=== PATIENT | female | born 1985 | race Caucasian/White ===

== ENCOUNTER → 2019-10-29 16:10 | Outpatient (BNVA) | payer MEDICARE, MEDICAID, SELFPAY | PROVIDERS: Family Provider Nurse Practitioner Family; PCP Nurse Practitioner Family; Referring Provider Nurse Practitioner Family; Visit Provider Obstetrics & Gynecology | DX: N93.9 Abnormal uterine and vaginal bleeding, unspecified (principal) | CPT/HCPCS: 84146; 84443 ==

== ENCOUNTER → 2019-11-05 13:20 | Outpatient (BNVA) | payer MEDICARE, MEDICAID, SELFPAY | PROVIDERS: Family Provider Nurse Practitioner Family; PCP Nurse Practitioner Family; Visit Provider Nurse Practitioner | DX: F43.12 Post-traumatic stress disorder, chronic (principal); F31.60 Bipolar disorder, current episode mixed, unspecified | CPT/HCPCS: 80061; 83036; 99213 ==

== ENCOUNTER 2019-11-11 08:12 | Outpatient (CLI) | payer MEDICARE, MEDICAID, SELFPAY ==
--- NOTE | 2019-11-11 08:48 | MR_ITS ---
WS: [id number] MRI of the head and brain with and without IV contrast, 11/11/2019 Clinical Data: hyperprolactinemia Comparison: None. Findings: Additional imaging of the pituitary with thin cuts and axial, sagittal and coronal projections was ob tained. Ventricular system is normal without shift. No recent infarct or hemorrhage is seen. No abnormal intracerebral mass is present. The cerebellum and brainstem are unremarkable. The carotid arteries show no aneurysms. The regions of nerves VII and VIII and the mastoid air cells are unremarkable. The intraorbital contents and paranasal sinuses are normal. The pituitary is normal in size with no evidence of any enlargement or abnormal signal. No evidence of metastatic disease is seen, and there is no abnormal contrast enhancement of any struc ture. MR/MR pituitary wo/w con* [id number] Impression: Negative MRI of the head and brain. Negative MRI of the pituitary.
== END 2019-11-11 08:13 | disposition home or self-care (01) ==
LOC: RADWPI 08:15
PROVIDERS: Family Provider Nurse Practitioner Family; PCP Nurse Practitioner Family; Visit Provider Obstetrics & Gynecology
DX: E22.1 Hyperprolactinemia (principal)
CPT/HCPCS: 70553; A9579

== ENCOUNTER → 2019-12-03 07:29 | Outpatient (BNVA) | payer MEDICARE, MEDICAID, SELFPAY | PROVIDERS: Family Provider Nurse Practitioner Family; PCP Nurse Practitioner Family; Visit Provider Obstetrics & Gynecology | DX: N93.9 Abnormal uterine and vaginal bleeding, unspecified (principal) | CPT/HCPCS: 88305 ==

== ENCOUNTER → 2019-12-31 12:55 | Outpatient (BNVA) | payer MEDICARE, MEDICAID, SELFPAY | PROVIDERS: Family Provider Nurse Practitioner Family; PCP Nurse Practitioner Family; Visit Provider Obstetrics & Gynecology | DX: R79.89 Other specified abnormal findings of blood chemistry (principal) | CPT/HCPCS: 84146 ==

== ENCOUNTER → 2020-01-27 07:43 | Outpatient (BNVA) | payer MEDICARE, MEDICAID, SELFPAY | PROVIDERS: Family Provider Nurse Practitioner Family; PCP Nurse Practitioner Family; Visit Provider Nurse Practitioner | DX: F43.12 Post-traumatic stress disorder, chronic (principal); F31.60 Bipolar disorder, current episode mixed, unspecified | CPT/HCPCS: 99213 ==

== ENCOUNTER → 2020-04-12 13:07 | Outpatient (BNVA) | payer MEDICARE, MEDICAID, SELFPAY | PROVIDERS: Family Provider Nurse Practitioner Family; PCP Nurse Practitioner Family; Visit Provider Obstetrics & Gynecology | DX: N93.9 Abnormal uterine and vaginal bleeding, unspecified (principal) | CPT/HCPCS: 84146 ==

== ENCOUNTER → 2020-04-21 09:15 | Outpatient (BNVA) | payer MEDICARE, MEDICAID, SELFPAY | PROVIDERS: Family Provider Nurse Practitioner Family; PCP Nurse Practitioner Family; Visit Provider Nurse Practitioner | DX: F43.12 Post-traumatic stress disorder, chronic (principal); F31.60 Bipolar disorder, current episode mixed, unspecified | CPT/HCPCS: 99213 ==

== ENCOUNTER → 2020-05-17 13:10 | Outpatient (BNVA) | payer MEDICARE, MEDICAID, SELFPAY | PROVIDERS: Family Provider Nurse Practitioner Family; PCP Nurse Practitioner Family; Visit Provider Obstetrics & Gynecology | DX: E22.1 Hyperprolactinemia (principal); N93.9 Abnormal uterine and vaginal bleeding, unspecified | CPT/HCPCS: 84146 ==

== ENCOUNTER → 2020-05-19 08:19 | Outpatient (BNVA) | payer MEDICARE, MEDICAID, SELFPAY | PROVIDERS: Family Provider Nurse Practitioner Family; PCP Nurse Practitioner Family; Visit Provider Nurse Practitioner | DX: F31.60 Bipolar disorder, current episode mixed, unspecified (principal); F43.12 Post-traumatic stress disorder, chronic | CPT/HCPCS: 99213 ==

== ENCOUNTER → 2020-05-23 11:16 | Outpatient (BNVA) | payer MEDICARE, MEDICAID, SELFPAY | PROVIDERS: Family Provider Nurse Practitioner Family; PCP Nurse Practitioner Family; Visit Provider Registered Nurse | DX: Z92.29 Personal history of other drug therapy (principal) | CPT/HCPCS: 80053; 85025 ==

== ENCOUNTER → 2020-08-22 08:05 | Outpatient (BNVA) | payer MEDICARE, MEDICAID, SELFPAY | PROVIDERS: Family Provider Nurse Practitioner Family; PCP Nurse Practitioner Family; Visit Provider Nurse Practitioner | DX: F31.60 Bipolar disorder, current episode mixed, unspecified (principal); F43.12 Post-traumatic stress disorder, chronic | CPT/HCPCS: 99213 ==

== ENCOUNTER → 2020-09-19 08:10 | Outpatient (BNVA) | payer MEDICARE, MEDICAID, SELFPAY | PROVIDERS: Family Provider Nurse Practitioner Family; PCP Nurse Practitioner Family; Visit Provider Nurse Practitioner | DX: F31.60 Bipolar disorder, current episode mixed, unspecified (principal); F43.12 Post-traumatic stress disorder, chronic | CPT/HCPCS: 99214 ==

== ENCOUNTER → 2020-12-12 13:44 | Outpatient (BNVA) | payer MEDICARE, MEDICAID, SELFPAY | PROVIDERS: Family Provider Nurse Practitioner Family; PCP Nurse Practitioner Family; Visit Provider Nurse Practitioner | DX: F31.60 Bipolar disorder, current episode mixed, unspecified (principal); F43.12 Post-traumatic stress disorder, chronic | CPT/HCPCS: 99214 ==

== ENCOUNTER → 2021-02-02 07:28 | Outpatient (BNVA) | payer MEDICARE, MEDICAID, SELFPAY | PROVIDERS: Family Provider Nurse Practitioner Family; PCP Nurse Practitioner Family; Visit Provider Nurse Practitioner | DX: F31.60 Bipolar disorder, current episode mixed, unspecified (principal); F43.12 Post-traumatic stress disorder, chronic | CPT/HCPCS: 99214 ==

== ENCOUNTER → 2021-03-16 07:07 | Outpatient (BNVA) | payer MEDICARE, MEDICAID, SELFPAY | PROVIDERS: Family Provider Nurse Practitioner Family; PCP Nurse Practitioner Family; Visit Provider Nurse Practitioner | DX: F31.60 Bipolar disorder, current episode mixed, unspecified (principal); F43.12 Post-traumatic stress disorder, chronic | CPT/HCPCS: 99214 ==

== ENCOUNTER → 2021-06-06 07:55 | Outpatient (BNVA) | payer MEDICARE, MEDICAID, SELFPAY | PROVIDERS: Family Provider Nurse Practitioner Family; PCP Nurse Practitioner Family; Visit Provider Nurse Practitioner | DX: F31.60 Bipolar disorder, current episode mixed, unspecified (principal); F43.12 Post-traumatic stress disorder, chronic | CPT/HCPCS: 99214 ==

== ENCOUNTER → 2021-06-19 09:22 | Outpatient (BNVA) | payer MEDICARE, MEDICAID, SELFPAY | PROVIDERS: Family Provider Nurse Practitioner Family; PCP Nurse Practitioner Family; Referring Provider Registered Nurse; Visit Provider Orthopaedic Surgery | DX: Z87.81 Personal history of (healed) traumatic fracture (principal) | CPT/HCPCS: 73000 ==

== ENCOUNTER → 2021-07-13 12:11 | Outpatient (BNVA) | payer MEDICARE, MEDICAID, SELFPAY | PROVIDERS: Family Provider Nurse Practitioner Family; PCP Nurse Practitioner Family; Visit Provider Nurse Practitioner | DX: Z01.812 Encounter for preprocedural laboratory examination (principal); Z20.822 Contact with and (suspected) exposure to COVID-19 | CPT/HCPCS: 87635 ==

== ENCOUNTER → 2021-07-17 09:30 | Outpatient (BNVA) | payer MEDICARE, MEDICAID, SELFPAY | PROVIDERS: Family Provider Nurse Practitioner Family; PCP Nurse Practitioner Family; Visit Provider Nurse Practitioner | DX: F31.60 Bipolar disorder, current episode mixed, unspecified (principal); F43.12 Post-traumatic stress disorder, chronic | CPT/HCPCS: 99214 ==

== ENCOUNTER 2021-07-19 09:22 | Day surgery (SDC) | payer MEDICARE, MEDICAID, SELFPAY ==
[2021-07-18 12:02] VITALS: BMI 19.8
[2021-07-19] VITALS (13 sets, daily range): BP systolic 95–141; BP diastolic 31–94; PULSE 56–114; RESP 13–32; TEMP 36.2–36.8; O2SAT 96–100
--- NOTE | 2021-07-19 | XR_ITS ---
WS: [id number] Right clavicle, C-arm fluoroscopy, 07/19/2021 Clinical Data: Revision, or pic Comparison: None. Findings: Dr. Oliveira revised the plate and screw fixation of a mid shaft fracture of the right clavicle. XR/[place] [id number] Impression: Revision of internal fixation of right clavicular fracture.
--- NOTE | 2021-07-19 | SCC_ITS ---
Procedure Done: Open reduction internal fixation right clavicle with iliac crest bone graft. Removal hardware right clavicle 8 seconds of fluoroscopic guidance, for a cumulative dose of 0.52 mGy, was provided to Dr. Oliveira by the radiology department. C-arm images of the RIGHT clavicle were saved for the patient's permanent record. [facility]
[2021-07-19] MEDS: sodium chloride 0.9% 1,000 ML 30 ML IV (09:55)
[2021-07-19 10:03] LABS: OR HCG Qualitative Urine Negative (Negative)
--- NOTE | 2021-07-19 10:44 | P.ANESASSM_ITS ---
Pre-Anesthetic Assessment Pre-Anesthetic Assessment: Height/Weight: Height 1.55 m Weight 47.627 kg Temp Pulse Resp BP Pulse Ox 98.2 F 56 L 16 119/69 97 07/19/21 09:36 07/19/21 09:36 07/19/21 09:36 07/19/21 09:36 07/19/21 09:36 Proposed Procedure: Operation Date: 07/19/21 11:05 Proposed Procedures p ORIF Clavicle 92124 Z87.81(Right) - Celio Oliveira MD Was Beta Yandel taken within 24 hours: N/A Was Clonidine taken within 24 hours: N/A Last intake: Intake Last Liquid Date 07/18/21 Last Liquid Time 11:45 Last Solid Date 07/18/21 Last Solid Time 23:00 Social: Social History: Tobacco and No alcohol Exam: Pre-Anes Outpt Exam: alert, oriented x 3 and regular rate & rhythm Airway: Submandibular: WNL Cervical ROM: WNL MP: 2 Dentition: False (uppers) Pulmonary: Pulmonary: COPD Neuropsych: Neuropsych: Anxiety, Bipolar and Depression Anesthetic Plan: ASA status: 2 Anesthesia: General Risk of > 500 ml blood loss (7ml/kg in children): No Meds/Allergies Current Medications: Current Medications Generic Name Dose Route Start Last Admin Trade Name Freq PRN Reason Stop Dose Admin Sodium Chloride 1,000 mls @ 30 ml s/hr 07/19/21 09:30 07/19/21 09:55 Sodium Chloride 0.9% IV 07/20/21 09:29 30 mls/hr .Q24H SUZI Administration PFSH Anesthesia PFSH: Medical History ADHD (attention deficit hyperactivity disorder) Bipolar disorder, current episode mixed, unspecified Post-traumatic stress disorder, chronic Psychiatric care Surgical History History of bilateral tubal ligation (~2011) History of broken collarbone (01/29/18) 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 [place] [facility] [place]. Family History Grandmother Uterine cancer maternal Mother Thyroid disease Unknown No pertinent family history hypertension, high cholesterol, diabetes, heart disease, stroke, colon cancer, breast cancer or ovarian cancer Social History Smoking risk assessment/counseling performed?: Yes Tobacco counseling given: counseling >3 minutes Alcohol intake: never Female Reproductive History: Date of last menstrual period: 06/20/21 Data Anesthesia Other Labs: Laboratory Results - last 48 hr 07/19/21 09:57 Urine HCG, Qual Negative Cardiac Studies: No Data to Display
--- NOTE | 2021-07-19 12:10 | W.PM.OPSUD ---
Surgery/Procedure H&P Update DATE OF PROCEDURE: July 19, 2021 DATE H&P PERFORMED: 06/19/21 H&P UPDATE INFORMATION: No changes to prior documentation PREOP DIAGNOSIS: Fracture nonunion right clavicle PLANNED PROCEDURE: Operation Date: 07/19/21 11:05 Proposed Procedures p ORIF Clavicle 64469 Z87.81(Right) - Celio Oliveira MD
--- NOTE | 2021-07-19 15:08 | P.PCN_ITS ---
PACU note PACU note: VSS, Good respiratory effort, report to RESISTOR TESTER Post-Anesthesia Exam: awake
--- NOTE | 2021-07-19 15:08 | PM.PACU ---
PACU note PACU note: VSS, Good respiratory effort, report to ETL SOFTWARE ENGINEER Post-Anesthesia Exam: awake
[2021-07-19] MEDS: HYDROmorphone 1 mg/mL INJ 1 mL IVP (15:10)
--- NOTE | 2021-07-19 15:10 | PM.OP ---
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 Removal hardware right clavicle Surgeon: Celio Oliveira Anesthesia: General Estimated blood loss (mL): 200 Findings: The patient had a nonunion of the right clavicle with loose hardware. She had approximately 15 mm of segmental bone loss at the fracture site. There was little evidence of a hypertrophic bone however really no significant atrophy of bones were identified on either Condition: stable Disposition: PACU Procedure: The patient was taken to the operating room and given a general anesthesia. She was given a gram of Ancef and prepped and draped in a soft beachchair position with her right anterior pelvis exposed. A timeout was performed. Initially the clavicle was opened in line with the previous scar and dissection was carried down to the previous plate which was found to be loose overlying the clavicle. The screws were easily removed with a screw with longitudinal traction and the plate elevated. Soft tissue was removed off the dorsum of the clavicle for future hardware placement. Bone edges were freshened and a chevron cut on both sides removing sclerotic ends. The ends of the clavicle were drilled with a small drill bit to facilitate vascular ingrowth at the bone surfaces. Next a 4 cm long incision was made over just posterior to the anterior superior iliac spine. Dissection was carried down with electrocautery to the iliac wing. Utilizing a cautery periosteum was elevated superiorly medially and laterally. Oscillating saw was used to harvest a tricortical bone wedge approximately 15 mm in length and approximately a centimeter in depth. A curette was used to remove 3 cc of additional cancellous bone graft. The periosteum was reapproximated with 0 Vicryl the subcutaneous with 2-0 Vicryl the skin with skin cecile. Next the bone ends were cut in a chevron configuration and the bone graft interposed between the nonunion and of the clavicle. A 10 hole plate was placed over the distal clavicle and fixed medially and laterally with a knock locking and nonlocking screws all with a secure fixation. An additional screw was placed through the fifth hole from the lateral end into the bone graft additionally securing that. Morselized bone graft was then packed about the anterior tricortical graft. The dorsal periosteum and fascia were closed over the clavicle with 0 Vicryl. Subcutaneous tissues were closed with 2-0 Vicryl. The skin was closed with skin cecile. Sterile dressings were applied. The patient was placed in a sling, extubated, and taken to recovery room in stable condition.
[2021-07-19] MEDS: diphenhydrAMINE 50 mg/mL SDV 1mL 25 MG IVP (15:33)
--- NOTE | 2021-07-19 16:24 | ANE.PACU2 ---
Inpatient post-anesthesia follow up: Airway intact: Yes Vital signs: Temperature 97.4 F Pulse Rate 78 Respiratory Rate 18 Blood Pressure 125/57 Pulse Oximetry 100 Oxygen Delivery Me thod Room Air Oxygen Flow Rate 8 Fraction of Inspir ed Oxygen Hydration adequate: Yes Nausea and vomiting: No Pain level: 4 Mental status: Baseline Additional Comments: Pruritus with hydromorphone, improved with diphenhydramine
== END 2021-07-19 16:55 | disposition home or self-care (01) ==
PROVIDERS: PCP Nurse Practitioner Family; Visit Provider Orthopaedic Surgery
PROC: (CPT 23515; principal; 2021-07-19 10:55)
DX: T84.84XA Pain due to internal orthopedic prosthetic devices, implants and grafts, initial encounter (principal); S42.001K Fracture of unspecified part of right clavicle, subsequent encounter for fracture with nonunion; X58.XXXD Exposure to other specified factors, subsequent encounter; J44.9 Chronic obstructive pulmonary disease, unspecified
CPT/HCPCS: 20680; 23485; 73000; 76000; 81025; 84703; C1713; J0690; J1100; J1170; J1200; J1580; J1885; J2250; J2405; J2704; J7030

== ENCOUNTER → 2021-08-13 07:43 | Outpatient (BNVA) | payer MEDICARE, MEDICAID, SELFPAY | PROVIDERS: PCP Nurse Practitioner Family; Visit Provider Nurse Practitioner | DX: F43.12 Post-traumatic stress disorder, chronic (principal); F31.60 Bipolar disorder, current episode mixed, unspecified | CPT/HCPCS: 99214 ==

== ENCOUNTER → 2021-08-24 10:23 | Outpatient (BNVA) | payer MEDICARE, MEDICAID, SELFPAY | PROVIDERS: PCP Registered Nurse; Visit Provider Registered Nurse | DX: N92.1 Excessive and frequent menstruation with irregular cycle (principal); Z02.83 Encounter for blood-alcohol and blood-drug test | CPT/HCPCS: 80053; 80307; 81000; 84443; 85025 ==

== ENCOUNTER → 2021-09-05 14:46 | Outpatient (BNVA) | payer MEDICARE, MEDICAID, SELFPAY | PROVIDERS: PCP Registered Nurse; Visit Provider Orthopaedic Surgery | DX: M89.8X1 Other specified disorders of bone, shoulder (principal); S42.021A Displaced fracture of shaft of right clavicle, initial encounter for closed fracture; X58.XXXA Exposure to other specified factors, initial encounter | CPT/HCPCS: 73000 ==

== ENCOUNTER → 2021-11-01 07:49 | Outpatient (BNVA) | payer MEDICARE, MEDICAID, SELFPAY | PROVIDERS: PCP Registered Nurse; Visit Provider Nurse Practitioner | DX: F31.60 Bipolar disorder, current episode mixed, unspecified (principal); F43.12 Post-traumatic stress disorder, chronic | CPT/HCPCS: 99214 ==

== ENCOUNTER → 2021-11-09 10:35 | Outpatient (BNVA) | payer MEDICARE, MEDICAID, SELFPAY | PROVIDERS: PCP Registered Nurse; Referring Provider Registered Nurse; Visit Provider Obstetrics & Gynecology | DX: N93.9 Abnormal uterine and vaginal bleeding, unspecified (principal); N91.5 Oligomenorrhea, unspecified | CPT/HCPCS: 83001; 84146; 84443; 85027 ==

== ENCOUNTER → 2021-11-13 08:27 | Outpatient (BNVA) | payer MEDICARE, MEDICAID, SELFPAY | PROVIDERS: PCP Registered Nurse; Visit Provider Orthopaedic Surgery | DX: Z98.890 Other specified postprocedural states (principal); S42.021D Displaced fracture of shaft of right clavicle, subsequent encounter for fracture with routine healing; X58.XXXD Exposure to other specified factors, subsequent encounter | CPT/HCPCS: 73000 ==

== ENCOUNTER 2021-12-06 10:27 | Outpatient (CLI) | payer MEDICARE, MEDICAID, SELFPAY ==
--- NOTE | 2021-12-06 11:00 | US_ITS ---
WS: [id number] TRANSABDOMINAL PELVIC AND TRANSVAGINAL PELVIC ULTRASOUND HISTORY: N91.5 - Oligomenorrhea, unspecified COMPARISON: None available. Uterus: 8.4 cm x 4.5 cm x 3.7 cm. Normal size anteverted uterus. Normal myometrium. Endometrium: 0.5 cm. Normal homogeneous endometrium. No mass or increased vascularity. Right ovary: 2.8 cm x 1.9 cm x 1.5 cm. Normal size and echogenicity. Normal vascularity. No mass. Left ovary: 2.4 cm x 2.1 cm x 1.8 cm. Normal size and echogenicity. No mass. Normal vascularity. No free fluid US/US pelvic with transvaginal IMPRESSION: Normal pelvic ultrasound.
== END 2021-12-06 10:28 | disposition home or self-care (01) ==
LOC: RAD 10:33
PROVIDERS: PCP Registered Nurse; Visit Provider Obstetrics & Gynecology
DX: N91.5 Oligomenorrhea, unspecified (principal)
CPT/HCPCS: 76830; 76856

== ENCOUNTER 2021-12-28 08:46 | Outpatient (CLI) | payer MEDICARE, MEDICAID, SELFPAY ==
--- NOTE | 2021-12-28 08:56 | XR_ITS ---
WS: [id number] [place] [id number] REASON FOR EXAM: fracture followup FINDINGS: Plate and screw fixation of nonunion fracture in the mid right clavicle The margins of the fracture fragments appear eroded with a significant gap between the fragments. Dif ficult to identify the proximal fracture fragment. No significant change is identified compared to 11/13/2021. Medial most screw displacement unchanged. However, compared to the prerevision examination of 06/19/2021 the well-defined sclerotic margins at t he fracture site are no longer seen. There appear to be erosive changes in the fracture margin of the distal fracture fragment. The gap between the fracture fragments appears somewhat wider. These may r epresent expected postoperative findings from the revision. XR/[place] [id number] IMPRESSION: Examination is unchanged compared to the most recent study with changes compare d to the previous revision examination which may be expected postoperative kurtz ges. Possibly a transient acro osteolysis.
== END 2021-12-28 08:47 | disposition home or self-care (01) ==
LOC: RAD 08:49
PROVIDERS: PCP Registered Nurse; Visit Provider Nurse Practitioner Family
DX: Z98.890 Other specified postprocedural states (principal)
CPT/HCPCS: 73000

== ENCOUNTER → 2022-01-28 07:16 | Outpatient (BNVA) | payer MEDICARE, MEDICAID, SELFPAY | PROVIDERS: PCP Registered Nurse; Visit Provider Nurse Practitioner | DX: F31.60 Bipolar disorder, current episode mixed, unspecified (principal); F43.12 Post-traumatic stress disorder, chronic | CPT/HCPCS: 99214 ==

== ENCOUNTER → 2022-04-23 09:37 | Outpatient (BNVA) | payer MEDICARE, MEDICAID, SELFPAY | PROVIDERS: PCP Registered Nurse; Visit Provider Nurse Practitioner Family | DX: M89.8X1 Other specified disorders of bone, shoulder (principal); Z98.890 Other specified postprocedural states | CPT/HCPCS: 73000; 99213; 99214 ==

== ENCOUNTER 2022-04-23 11:05 | Outpatient (CLI) | payer MEDICARE, OTHER, SELFPAY | END 2022-04-23 11:06 | disposition home or self-care (01) | LOC: SPT 11:06 | PROVIDERS: PCP Registered Nurse; Visit Provider Nurse Practitioner Family | DX: S42.009A Fracture of unspecified part of unspecified clavicle, initial encounter for closed fracture (principal); X58.XXXA Exposure to other specified factors, initial encounter | CPT/HCPCS: 97760; A4565 ==

== ENCOUNTER → 2024-05-11 13:59 | Outpatient (BNVA) | payer MEDICARE, MEDICAID, OTHER, SELFPAY | PROVIDERS: PCP Registered Nurse; Visit Provider Obstetrics & Gynecology | DX: Z01.419 Encounter for gynecological examination (general) (routine) without abnormal findings (principal) | CPT/HCPCS: 87624 ==

== ENCOUNTER → 2024-05-31 12:09 | Outpatient (BNVA) | payer MEDICARE, MEDICAID, SELFPAY | PROVIDERS: PCP Registered Nurse; Visit Provider Obstetrics & Gynecology | DX: N92.6 Irregular menstruation, unspecified (principal) | CPT/HCPCS: 76830 ==

== ENCOUNTER 2024-09-02 08:59 | Observation (INO) | payer MEDICARE, MEDICAID, SELFPAY ==
[2024-09-02] VITALS (17 sets, daily range): BP systolic 96–130; BP diastolic 38–77; PULSE 52–116; RESP 16–18; TEMP 36.3–36.9; O2SAT 95–99; BMI 19.6
--- NOTE | 2024-09-02 05:06 | P.HP_ITS ---
Same Day Surgery H&P Indication for Procedure/HPI DATE OF PROCEDURE: September 02, 2024 CHIEF COMPLAINT/INDICATIONFOR SURGICAL PROCEDURE: chronic severe dysmenorrhea PREOP DIAGNOSIS: chronic severe dysmenorrhea PLANNED PROCEDURE: Operation Date: 09/02/24 07:00 Proposed Procedures p Total Vaginal Hysterectomy 83969, N93.9, N92.1(Not Applicable) - Zhao Cuevas MD 38 y.o. h/o x three h/o BTL periods irregular very painful when they do occur wants hysterectomy for definitive treatment Medications/Allergies* Home Medications Medication Instructions Recorded Confirmed Type No Known Home Medications 06/08/24 09/01/24 History Allergies/Adverse Reactions Allergy/AdvReac Type Severity Reaction Status Date / Time No Known Allergies Allergy Verified 09/01/24 10:28 Pertinent History/Comorbid Conditions* Medical History (Updated 11/18/21 @ 16:50 by Richard Grullon MD) Psychiatric care Psychiatric care Bipolar disorder, current episode mixed, unspecified Post-traumatic stress disorder, chronic ADHD (attention deficit hyperactivity disorder) Surgical History (Updated 09/05/21 @ 15:21 by Celio Oliveira MD) History of broken collarbone (01/29/18) 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 Performed [place] Dr. Burks [place] [facility] [place], [place]. History of bilateral tubal ligation (~2011) Family History (Updated 11/09/21 @ 09:13 by Carrol Morgan RN) Uterine cancer Grandmother maternal, age unknown Thyroid disease Mother Family/Other maternal aunt Denies family history of Colon cancer Ovarian cancer Diabetes Clotting disorder Heart disease Hyperlipidemia Breast cancer Anesthesia complication Bleeding disorder Hypertension Stroke Social History Smoking and tobacco/nicotine status: never used tobacco/nicotine Pertinent Exam Findings alert, oriented x 3, clear to auscultation bilaterally and regular rate & rhythm Pertinent Data Pap 05-11-24 NILM, negative HPV Pelvic sono 05-31-24 normal uterus, endometrium and ovaries Recommendations Surgery/Procedure today Coding Level of Care Code Acute Code for Chg Fwd Time Spent (min) 20
--- NOTE | 2024-09-02 06:33 | P.ANESASSM_ITS ---
Pre-Anesthetic Assessment Height/Weight: Height 5 ft 1 in Weight 104 lb Temp Pulse Resp BP Pulse Ox O2 Del Method 98.3 F 54 L 18 130/66 97 Room Air 09/02/24 06:13 09/02/24 06:13 09/02/24 06:13 09/02/24 06:13 09/02/24 06:13 09/02/24 06:14 Preop Diagnosis: chronic severe dysmenorrhea Operation Date: 09/02/24 07:00 Proposed Procedures p Total Vaginal Hysterectomy 92681, N93.9, N92.1(Not Applicable) - Zhao Cuevas MD Was Beta Yandel taken within 24 hours: N/A Was Clonidine taken within 24 hours: N/A Last intake: Intake Last Liquid Date 09/01/24 Last Liquid Time 23:59 Last Solid Date 09/01/24 Last Solid Time 20:00 Social Tobacco and No alcohol Exam alert, oriented x 3, clear to auscultation bilaterally and regular rate & rhythm Airway Submandibular: within normal limits Cervical ROM: within normal limits Mallampati: Class II Comments: Comments: false upper, missing some on bottom but denies any loose Anesthetic Plan ASA status: 2 Anesthesia: General Other: No prior issues with anesthesia NPO since yesterday Current smoker Denies any cardiac issues Labs pending METs greater than 4 Plan for GETA Medications/Allergies Home Medications Medication Instructions Recorded Confirmed Last Taken Type No Known Home Medications 06/08/24 09/01/24 Unknown History Allergies Allergy/AdvReac Type Severity Reaction Status Date / Time No Known Allergies Allergy Verified 09/01/24 10:28 COUNT INCLUDES THE [facility] Anesthesia Medical History Psychiatric care Psychiatric care Bipolar disorder, current episode mixed, unspecified Post-traumatic stress disorder, chronic ADHD (attention deficit hyperactivity disorder) Surgical History History of broken collarbone (01/29/18) 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 Performed by Dr. Burks at [facility] in [place], [place]. History of bilateral tubal ligation (~2011) Family History Grandmother Uterine cancer maternal, age unknown Mother Thyroid disease Unknown No problems noted. Family/Other Thyroid disease maternal aunt Denies family history of Colon cancer Ovarian cancer Diabetes Clotting disorder Heart disease Hyperlipidemia Breast cancer Anesthesia complication Bleeding disorder Hypertension Stroke Social History Smoking and tobacco/nicotine status: never used tobacco/nicotine Female Reproductive History Date of last menstrual period: 08/11/24 Data Anesthesia Cardiac Studies: No Data to Display
[2024-09-02 06:45] LABS: Basophils % 0.4 %; Eosinophils # 0.1 10^3/uL (0.0-0.8); Eosinophils % 1.7 %; Hematocrit 40.1 % (36-47); Lymphocytes # 1.8 10^3/uL (0.8-4.8); Lymphocytes % 34.2 %; Mean Corpuscular HGB Conc 33.7 g/dL (30-55); Mean Corpuscular Hemoglobin 28.9 pg (27-33); Mean Corpuscular Volume 85.9 fl (85-98); Mean Platelet Volume 12.2 fL (7.4-10.4); Monocytes # 0.4 10^3/uL (0.2-0.9); Monocytes % 8.3 %; Neutrophils # 2.92 10^3/uL (1.8-7.7); Nucleated Red Blood Cells % 0 %; Platelet Count 156 10^3/cmm (157-399); Red Blood Count 4.67 10^6/uL (3.85-5.65); Red Cell Distribution Width 12.6 % (12.1-15.1)
--- NOTE | 2024-09-02 06:47 | W.PM.OPSUD ---
Surgery/Procedure H&P Update DATE OF PROCEDURE: September 02, 2024 DATE H&P PERFORMED: 09/02/24 H&P UPDATE INFORMATION: I have reviewed H&P completed within last 30 days, I have examined patient prior to procedure and No changes to prior documentation PREOP DIAGNOSIS: chronic severe dysmenorrhea PLANNED PROCEDURE: Operation Date: 09/02/24 07:00 Proposed Procedures p Total Vaginal Hysterectomy 74902, N93.9, N92.1(Not Applicable) - Zhao Cuevas MD
[2024-09-02 06:52] LABS: OR HCG Qualitative Urine Negative (Negative)
[2024-09-02] MEDS: sodium chloride 0.9% 1,000 ML 30 ML IV (06:56)
[2024-09-02] MEDS: ceFAZolin 2,000 mg SDV 2000 MG IVP (07:00)
[2024-09-02 07:01] LABS: Anion Gap 15.6 (5-19); Blood Urea Nitrogen 17 mg/dL (6-20); Carbon Dioxide 21 mmol/L (22-29); Chloride 104 mmol/L (98-107); Creatinine Clr Calc Pharmacy 72.2737; Glomerular Filtration Rate 80.7 mL/min (90-130); Glucose 99 mg/dL (65-115); Osmolality Calculated 286 mOsm/kg (285-295); Potassium 3.6 mmol/L (3.5-5.1); Sodium 137 mmol/L (136-145)
[2024-09-02] MEDS: lidocaine-epi 1% 20 mL INJ 10 ML INJECTION (07:31)
--- NOTE | 2024-09-02 09:15 | ANE.PACU2 ---
Inpatient post-anesthesia follow up: Airway intact: Yes Vital signs: Temperature 97.4 F Pulse Rate 91 Respiratory Rate 18 Blood Pressure 112/51 Pulse Oximetry 98 Oxygen Delivery Me thod Room Air Oxygen Flow Rate Fraction of Inspir ed Oxygen Hydration adequate: Yes Nausea and vomiting: No Pain level: 1 Mental status: Baseline
--- NOTE | 2024-09-02 09:40 | PM.OP ---
Operative Report Date of procedure: September 02, 2024 Pre-op diagnosis: chronic pelvic pain and dysmenorrhea Post-op diagnosis: same Post-op findings: normal-sized uterus normal ovaries Procedure done: Total vaginal hysterectomy Implants: none Specimens removed/disposition: uterus Surgeon: Richard Grullon MD Home Health Clinical Liaison: Zhao Cuevas MD Anesthesia: General Estimated blood loss (mL): 25 Complications: none Findings: normal-sized uterus normal ovaries Condition: stable Disposition: PACU Brief History: 38 y.o. with chronic pelvic pain and dysmenorrhea Procedure: Informed consent signed. The patient was taken to the operating room and placed supine on the table. General endotracheal anesthesia was induced. The patient was placed in dorsal lithotomy position, prepped, and draped in the usual sterile fashion. A Rocha catheter was placed. A Bookwalter retractor was placed in the vagina. The cervix was grasped with a single-toothed tenaculum. Approximately 10 cc of 2% lidocaine with epinephrine was injected circumferentially submucosally at the cervico-vaginal junction. The cervix was circumferentially incised with the bovie. The bladder was dissected off the pubovesical cervical fascia anteriorly with Metzenbaum scissors and also bluntly with a sponge stick. The anterior cul-de-sac was entered sharply with Metzenbaum scissors, avoiding the bladder. The posterior cul-de-sac was entered using the Metzenbaum scissors. The uterosacral ligaments on both sides were isolated and ligated with O-Vicryl suture ligature. The Ligasure device was used to coagulate, cut and ligate the uterosacral ligaments and the cardinal ligaments on both sides. The uterine arteries were clamped, cut, and ligated with the Ligasure device. Good hemostasis was seen. The broad ligaments on both sides were then clamped, ligated, and cut using the Ligasure device. Both cornua were similarly excised. The uterus was thus removed and sent to pathology. The pedicles were again inspected and was seen to be hemostatic. The peritoneum was then closed with O-Vicryl suture after the bladder was drained. The vaginal cuff was then closed beginning with transfixing the cardinal and uterosacral ligaments. The cuff was closed with O-Vicryl suture in a running locked fashion. All instruments were then removed. Good hemostasis was observed. Rocha catheter was in place. The patient was then place supine and awakened and taken to the PACU in good condition. Postoperative condition: stable EBL: 25 cc Sponge, needle, and instrument counts were correct x two
[2024-09-02] MEDS: diphenhydrAMINE 50 mg/mL SDV 1mL 25 MG IVP ×2 (09:56→21:59)
[2024-09-02] MEDS: ketorolac 30 mg/mL INJ IVP ×3 (09:57→21:55)
[2024-09-02] MEDS: HYDROcodone-acetaminophen 5-325 mg Tablet PO (17:48)
[2024-09-02] MEDS: docusate sodium 100 mg Capsule PO (17:48)
[2024-09-03 05:00] VITALS: BP 103/64; PULSE 62; RESP 15; O2SAT 97
[2024-09-03 05:30] LABS: Hematocrit 34.3 % (36-47); Mean Corpuscular HGB Conc 33.5 g/dL (30-55); Mean Corpuscular Hemoglobin 29.3 pg (27-33); Mean Corpuscular Volume 87.5 fl (85-98); Mean Platelet Volume 12.6 fL (7.4-10.4); Platelet Count 134 10^3/cmm (157-399); Red Blood Count 3.92 10^6/uL (3.85-5.65); Red Cell Distribution Width 12.8 % (12.1-15.1); White Blood Count 8.23 10^3/uL (3.29-11.43)
[2024-09-03 10:07] VITALS: BP 105/58; PULSE 60; RESP 15; TEMP 36.6; O2SAT 98
[2024-09-03] MEDS: ibuprofen 800 mg tablet PO (10:08)
[2024-09-03] MEDS: docusate sodium 100 mg Capsule PO (10:09)
[2024-09-03] MEDS: HYDROcodone-acetaminophen 5-325 mg Tablet PO (11:58)
[2024-09-03 12:13] VITALS: BP 111/65; PULSE 65; RESP 14; TEMP 36.6; O2SAT 97
[2024-09-03 12:45] VITALS: BP 111/65; PULSE 65; RESP 14; TEMP 36.6; O2SAT 97
--- NOTE | 2024-09-03 13:10 | P.PN_ITS ---
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: Interval history: no c/o no abdominal pain eating, voiding, ambulating well no bleeding / discharge Vitals/I&O/Wt Last Vital Signs Temp 97.9 F 09/03/24 12:45 Pulse 65 09/03/24 12:45 Resp 14 09/03/24 12:45 BP 111/65 09/03/24 12:45 Pulse Ox 97 09/03/24 12:45 O2 Del Method Room Air 09/03/24 12:13 Weight last 48 hrs Weight 104 lb Physical Exam 2 Narrative: Comfortable, in no distress Awake, alert Afebrile, VS normal Lungs: clear Cor: RRR Abd: soft, nondistended, nontender Ext: normal Urinary Catheter Management: Rocha: Cath Placed During This Visit: yes Urinary Catheter Date of Insertion: 09/02/24 Urinary Catheter Time of Insertion: 07:25 Data 09/03/24 04:59 09/02/24 06:30 A&P Assessment and plan (1) S/P hysterectomy: s/p total vaginal hysterectomy POD #1 Doing well Plan discharge to home Call / return if fever, chills, abdominal pain, bleeding f/u in one week Attestations 2 Medical Necessity Statement*: patient s/p hysterectomy, plan to discharge to home today Coding Level of Care Code Acute Code for Chg Fwd Diagnoses S/P hysterectomy Z90.710 Time Spent (min) 20
--- NOTE | 2024-09-03 13:15 | P.DS_ITS ---
Discharge Providers SCALP SPECIALIST Date of Admission: 09/02/24 08:59 Date of Discharge: 09/03/24 Attending Provider at Admission: Zhao Cuevas MD Attending Provider at Discharge: Zhao Cuevas MD Consults: none Primary SCALP SPECIALIST: Zhao Cuevas MD Primary Care Provider: CRISTI Gonzalez Diagnoses at Discharge Discharge Diagnosis (1) S/P hysterectomy: Details from hospital stay: 38 y.o. h/o chronic pelvic pain and severe dysmenorrhea admitted for hysterectomy patient underwent total vaginal hysterectomy without any complications patient did well postoperatively and was discharged to home on the first postoperative day Status: Acute Reason for Visit Reason for Visit: N93.9 Brief History: 38 y.o. h/o chronic pelvic pain and severe dysmenorrhea admitted for hysterectomy Hospital Course Hospital Course 38 y.o. h/o chronic pelvic pain and severe dysmenorrhea admitted for hysterectomy patient underwent total vaginal hysterectomy without any complications patient did well postoperatively and was discharged to home on the first postoperative day Physical Exam Narrative: Comfortable, in no distress Awake, alert Afebrile, VS normal Lungs: clear Cor: RRR Abd: soft, nondistended, nontender Ext: normal Urinary Catheter Management: Rocha: Cath Placed During This Visit: yes Urinary Catheter Date of Insertion: 09/02/24 Urinary Catheter Time of Insertion: 07:25 History History History 3 Term 3 0 Miscarriages/Ectopic 0 Living Children 3 Discharge Data Studies Completed and Pending Pending at discharge Category Date Time Status Pathology: Surgical [PTH] Routine Pth 09/02/24 08:17 Received Laboratory Results WBC 8.23 10^3/uL (3.29-11.43) 09/03/24 04:59 RBC 3.92 10^6/uL (3.85-5.65) 09/03/24 04:59 Hgb 11.50 g/dL (11.27-16.99) 09/03/24 04:59 Hct 34.3 % (36-47) L 09/03/24 04:59 MCV 87.5 fl (85-98) 09/03/24 04:59 MCH 29.3 pg (27-33) 09/03/24 04:59 MCHC 33.5 g/dL (30-55) 09/03/24 04:59 RDW 12.8 % (12.1-15.1) 09/03/24 04:59 Plt Count 134 10^3/cmm (157-399) L 09/03/24 04:59 MPV 12.6 fL (7.4-10.4) H 09/03/24 04:59 Neut % (Auto) 55.0 % 09/02/24 06:30 Lymph % (Auto) 34.2 % 09/02/24 06:30 [place] % (Auto) 8.3 % 09/02/24 06:30 Eos % (Auto) 1.7 % 09/02/24 06:30 Baso % (Auto) 0.4 % 09/02/24 06:30 Neut # (Auto) 2.92 10^3/uL (1.8-7.7) 09/02/24 06:30 Lymph # (Auto) 1.8 10^3/uL (0.8-4.8) 09/02/24 06:30 [place] # (Auto) 0.4 10^3/uL (0.2-0.9) 09/02/24 06:30 Eos # (Auto) 0.1 10^3/uL (0.0-0.8) 09/02/24 06:30 Baso # (Auto) 0.0 10^3/uL (0.0-0.1) 09/02/24 06:30 Nucleated RBC % (auto) 0 % 09/02/24 06:30 Nucleated RBCs # 0.0 /100WBC 09/02/24 06:30 Sodium 137 mmol/L (136-145) 09/02/24 06:30 Potassium 3.6 mmol/L (3.5-5.1) 09/02/24 06:30 Chloride 104 mmol/L (98-107) 09/02/24 06:30 Carbon Dioxide 21 mmol/L (22-29) L 09/02/24 06:30 Anion Gap 15.6 (5-19) 09/02/24 06:30 BUN 17 mg/dL (6-20) 09/02/24 06:30 Creatinine 0.8 mg/dL (0.5-0.9) 09/02/24 06:30 GFR Calculation 80.7 mL/min (90-130) L 09/02/24 06:30 Glucose 99 mg/dL (65-115) 09/02/24 06:30 Calculated Osmolality 286 mOsm/kg (285-295) 09/02/24 06:30 Calcium 9.0 mg/dL (8.5-10.5) 09/02/24 06:30 Urine HCG, Qual Negative (Negative) 09/02/24 06:09 Blood Type A Positive 09/02/24 06:30 Rho(D) Type Rh positive 09/02/24 06:30 Antibody Screen Negative 09/02/24 06:30 Procedures Performed total vaginal hysterectomy Vitals Last Vital Signs Temp 97.9 F 09/03/24 12:45 Pulse 65 09/03/24 12:45 Resp 14 09/03/24 12:45 BP 111/65 09/03/24 12:45 Pulse Ox 97 09/03/24 12:45 O2 Del Method Room Air 09/03/24 12:13 Results Labs OB ([facility]): Blood Type A Positive 09/02/24 Antibody Screen Negative 09/02/24 Hct 34.3 % (36-47) L 09/03/24 Hgb 11.50 g/dL (11.27-16.99) 09/03/24 Rho(D) Type Rh positive 09/02/24 Plt Count 134 10^3/cmm (157-399) L 09/03/24 Pap Smear Interpret See note 05/11/24 Discharge Plan Discharge Patient Disposition: Home Condition: Stable Prescriptions: No Action No Known Home Medications Discharge Orders: Discharge Order (Routine); Ordered 09/03/24 Ordered By: Zhao Cuevas Referrals: Esther Linares NP [Nurse Practitioner] - 09/09/24 1:15 pm Zhao uCevas MD [Physician] - 10/13/24 1:45 pm Discharge Diet: Usual diet Discharge Activity: Increase activity as tolerated Patient Instructions: Acute Wound Care (DC), Opioid Safety (DC), Vaginal Hysterectomy (DC), OB Discharge Report, OB Food/Drug Interaction Guide, Opioid Safety, Post Anesthesia Care Discharge Attestations SCALP SPECIALIST Time Spent in Discharge Care*: less than 30 min Coding Level of Care Code Acute Code for Chg Fwd Diagnoses S/P hysterectomy Z90.710 Time Spent (min) 20
== END 2024-09-03 12:45 | disposition home or self-care (01) ==
LOC: OBGYN 09:00
PROVIDERS: Student in an Organized Health Care Education/Training Program; Admitting Provider Obstetrics & Gynecology; PCP Registered Nurse; Visit Provider Obstetrics & Gynecology
PROC: (CPT 58260; principal; 2024-09-02 07:00)
DX: N94.6 Dysmenorrhea, unspecified (principal); F17.200 Nicotine dependence, unspecified, uncomplicated
CPT/HCPCS: 58260; 36415; 80048; 81025; 85025; 85027; 86850; 86900; 88307; 96374; 96376; G0378; J0131; J0690; J1100; J1171; J1200; J1885; J2250; J2405; J2704; J3010; J3490; J7030

== ENCOUNTER 2025-04-19 14:22 | Emergency (ER) | payer MEDICARE, MEDICAID, SELFPAY ==
--- OUTSIDE RECORDS SUMMARY | 2025-04-19 14:29 | XMS_ITS | Encounter Summary ---
Author Organization [facility] Address [address] [place] [address] Care Team Providers Care Concrete Pile Driver Operator Name Role Phone Regan Valles MD Primary Care Provider +1 [phone] Encounter Details Date Type Department Care Team (Late st Contact Info) Description 03/15/2006 Inpatient Historical [facility] Elie Fernandez MD NO ADDRESS ON FILE Closed Fracture of Acromial End of Clavicle (Primary Dx) Social History Tobacco Use Types Packs/Day Years Used Date Smoking Tobacco: Never Assessed Comments Unknown Sex and Gender Information Value Date Recorded Sex Assigned at Not on file Legal Sex Female 5: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
--- OUTSIDE RECORDS SUMMARY | 2025-04-19 14:29 | XMS_ITS | Encounter Summary ---
Author Organization [facility] Address [address] [place] [address] Care Team Providers Care Entry Level Sales Associate Name Role Phone Regan Valles MD Primary Care Provider +1 [phone] Encounter Details Date Type Department Care Team (Latest Contact Info) Description 11/08/2004 Outpatient Historical [facility] Medicine [place] [address] [address] Reggie Plata NP NO ADDRESS ON FILE ACUTE SINUSITIS NOS (Primary Dx); DEPRESSIVE DISORDER NEC; NAUSEA ALONE Social History Tobacco Use Types Packs/Day Years Used Date Smoking Tobacco: Never Assessed Comments Unknown Sex and Gender Information Value Date Recorded Sex Assigned at Not on file Legal Sex Female 5:07 AM POST FORM REMOVER Gender Identity Not on file Sexual Orientation Not on file documented as of this encounter Plan of Treatment Not on file documented as of this encounter Visit Diagnoses Diagnosis Acute sinusitis, unspecified- Primary Depressive disorder, not elsewhere classified Nausea alone documented in this encounter Care Teams Entry Level Sales Associate Relationship Specialty Start Date End Date Regan Valles MD [address] [address] PCP - General Family Practice 07/03/20 documented as of this encounter
--- OUTSIDE RECORDS SUMMARY | 2025-04-19 14:29 | XMS_ITS | Encounter Summary ---
Author Organization [facility] Address [address] [place] [address] Care Team Providers Care Plumber Supervisor Name Role Phone Regan Valles MD Primary Care Provider +1 [phone] Encounter Details Date Type Department Care Team (Latest Contact Info) Description 12/09/[address] [facility] Family Medicine [place] [address] [address] Reggie Plata NP NO ADDRESS ON FILE Absence of Menstruation (Primary Dx) Social History Tobacco Use Types Packs/Day Years Used Date Smoking Tobacco: Never Assessed Comments Unknown Sex and Gender Information Value Date Recorded Sex Assigned at Not on file Legal Sex Female 5:07 AM KNOCK OUT HAND Gender Identity Not on file Sexual Orientation Not on file documented as of this encounter Plan of Treatment Not on file documented as of this encounter Visit Diagnoses Diagnosis Absence of menstruation- Primary documented in this encounter Care Teams Plumber Supervisor Relationship Specialty Start Date End Date Regan Valles MD [address] [phone] PCP - General Family Practice 07/03/20 documented as of this encounter
--- OUTSIDE RECORDS SUMMARY | 2025-04-19 14:29 | XMS_ITS | Encounter Summary ---
Author Organization [facility] Address [address] [place] [address] Care Team Providers Care Guest Service Manager Name Role Phone Regan Valles MD Primary Care Provider +1 [phone] Encounter Details Date Type Department Care Team (Latest Contact Info) Description 06/22/2005 Outpatient Historical [facility] [address] [place] [address] AM[address], 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
--- OUTSIDE RECORDS SUMMARY | 2025-04-19 14:29 | XMS_ITS | Encounter Summary ---
Author Organization [facility] Address [address] [place] [address] Care Team Providers Care Approver Name Role Phone Regan Valles MD Primary Care Provider +1 [phone] Encounter Details Date Type Department Care Team (Latest Contact Info) Description 07/24/2006 Outpatient Historical [facility] [address] 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
--- OUTSIDE RECORDS SUMMARY | 2025-04-19 14:29 | XMS_ITS | Encounter Summary ---
Author Organization [facility] Address [address] [place] [address] Care Team Providers Care Health Educator Name Role Phone Regan Valles MD Primary Care Provider +1 [phone] Encounter Details Date Type Department Care Team (Latest Contact Info) Description 04/04/2003 Outpatient Historical [facility] [address] [address] Bernice Heller MD NO ADDRESS ON FILE MED EXAM NEC-ADMIN PURP (Primary Dx) Social History Tobacco Use Types Packs/Day Years Used Date Smoking Tobacco: Never Assessed Comments Unknown Sex and Gender Information Value Date Recorded Sex Assigned at Not on file Legal Sex Female 5:07 AM INSIDE SALES 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
--- OUTSIDE RECORDS SUMMARY | 2025-04-19 14:29 | XMS_ITS | Encounter Summary ---
Author Organization [facility] Address [address] [place] [address] Care Team Providers Care Exercise Manager Name Role Phone Regan Valles MD Primary Care Provider +1 -[phone] Encounter Details Date Type Department Care Team (Late st Contact Info) Description 11/24/2017 Ancillary Orders [facility] [place] [address] [place] [address] [facility], STORE [facility] [address] [place] [address] Pain of right clavicle Social History Tobacco Use Types Packs/Day Years Used Date Smoking Tobacco: Every Day Cigarettes Smokeless Tobacco: Never Alcohol Use Standard Drinks/Week Comments No 0 (1 standard drink = 0.6 oz pur e alcohol) Comments No Sex and Gender Information Value Date Recorded Sex Assigned at Not on file Legal Sex Female 5:07 AM HEARING EXAMINER Gender Identity Not on file Sexual Orientation Not on file Occupation Industry Job Start Date Job End Date Not on file Not on file Not on file Not on file Not on file Not on file Not on file Not on file Not on file Not on file Not on file Not on file documented as of this encounter Plan of Treatment Not on file documented as of this encounter Results * XR CLAVICLE RIGHT (11/24/2017 1:25 PM CDT) Anatomical Region Laterality Modality Upper Extremity Computed Radiogr aphy 11/24/2017 1:26 PM CDT Impressions 11/24/2017 3:06 PM CDT IMPRESSION: Please see below. Exam: XR CLAVICLE RIGHT Date/Time of Exam: 11/24/2017 1:25 PM Reason For Exam: Pain of right clavicle. Findings: The prior exam is January 30, 2016. 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 This has the appearance of a pseudarthrosis with rounded sclerotic margins. No new fracture. No dislocation. The right lung apex is clear. IMPRESSION: 1. Ununited right clavicle fracture as above. [id number] Narrative Procedure Note Alyssa Mitchell MD - 11/24/2017 IMPRESSION: Please see below. Exam: XR CLAVICLE RIGHT Date/Time of Exam: 11/24/2017 1:25 PM Reason For Exam: Pain of right clavicle. Findings: The prior exam is January 30, 2016. 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 This has the appearance of a pseudarthrosis with rounded sclerotic margins. No new fracture. No dislocation. The right lung apex is clear. IMPRESSION: 1. Ununited right clavicle fracture as above. [id number] [facility] ST[facility] LE[facility] DI[facility]NOST[facility] IMAGING ORDERABL ES Final Result documented in this encounter Visit Diagnoses Diagnosis Pain of right clavicle Pain of right clavicle documented in this encounter Care Teams Exercise Manager Relationship Specialty Start Date End Date Regan Valles MD [address] [facility] [address] [place] [phone] PCP - General Family Practice 07/03/20 documented as of this encounter
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
--- OUTSIDE RECORDS SUMMARY | 2025-04-19 14:29 | XMS_ITS | Encounter Summary ---
Author Organization [facility] Address [address] [place] [address] Care Team Providers Care Customer Service Specialist Name Role Phone Regan Valles MD Primary Care Provider +1 [phone] Encounter Details Date Type Department Care Team (Late st Contact Info) Description 05/21/2006 Outpatient Historical [facility] Orthopedics- [address] [place] [address] 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
--- OUTSIDE RECORDS SUMMARY | 2025-04-19 14:29 | XMS_ITS | Encounter Summary ---
Author Organization [facility] Address [address] [place] [address] Care Team Providers Care Decker Operator Name Role Phone Regan Valles MD Primary Care Provider +1 -[phone] Encounter Details Date Type Department Care Team (Latest Contact Info) Description 07/10/2004 Outpatient Historical [facility] Family Medicine [address] [address] Reggie Plata NP NO ADDRESS ON FILE ROUTINE MATTRESS FINISHER EXAMINATION (Primary Dx) Social History Tobacco Use Types Packs/Day Years Used Date Smoking Tobacco: Never Assessed Comments Unknown Sex and Gender Information Value Date Recorded Sex Assigned at Not on file Legal Sex Female 

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
--- OUTSIDE RECORDS SUMMARY | 2025-04-19 14:29 | XMS_ITS | Encounter Summary ---
Author Organization [facility] Address [address] [place] [address] Care Team Providers Care Pocket Setter Name Role Phone Regan Valles MD Primary Care Provider +1 -[phone] Encounter Details Date Type Department Care Team (Latest Contact Info) Description 10/27/2003 Outpatient Historical [facility] Family Medicine [address] [address] Bernice Heller MD NO ADDRESS ON FILE SPRAIN OF ANKLE NOS (Primary Dx) Social History Tobacco Use Types Packs/Day Years Used Date Smoking Tobacco: Never Assessed Comments Unknown Sex and Gender Information Value Date Recorded Sex Assigned at Not on file Legal Sex Female 5:07 AM FRANCHISE BROKER Gender Identity Not on file Sexual Orientation Not on file documented as of this encounter Plan of Treatment Not on file documented as of this encounter Visit Diagnoses Diagnosis Sprain of ankle, unspecified site- Primary documented in this encounter Care Teams Pocket Setter Relationship Specialty Start Date End Date Regan Valles MD [address] [address] PCP - General Family Practice 07/03/20 documented as of this encounter
--- OUTSIDE RECORDS SUMMARY | 2025-04-19 14:29 | XMS_ITS | Encounter Summary ---
Author Organization [facility] Address [address] [place] [address] Care Team Providers Care Realty Specialist Name Role Phone Regan Valles MD Primary Care Provider +1 -[phone] Encounter Details Date Type Department Care Team (Latest Contact Info) Description 10/02/2004 Outpatient Historical [facility] Medicine [place] [address] [address] Reggie Plata NP NO ADDRESS ON FILE ACUTE PHARYNGITIS (Primary Dx); ACUTE SINUSITIS NOS Social History Tobacco Use Types Packs/Day Years Used Date Smoking Tobacco: Never Assessed Comments Unknown Sex and Gender Information Value Date Recorded Sex Assigned at Not on file Legal Sex Female 5:07 AM ELECTRICAL TECH Gender Identity Not on file Sexual Orientation Not on file documented as of this encounter Plan of Treatment Not on file documented as of this encounter Visit Diagnoses Diagnosis Acute pharyngitis- Primary Acute sinusitis, unspecified documented in this encounter Care Teams Realty Specialist Relationship Specialty Start Date End Date Regan Valles MD [address] [phone] PCP - General Family Practice 07/03/20 documented as of this encounter
--- OUTSIDE RECORDS SUMMARY | 2025-04-19 14:29 | XMS_ITS | Encounter Summary ---
Author Organization [facility] Address [address] [place] [address] Care Team Providers Care Smash Hand Name Role Phone Regan Valles MD Primary Care Provider +1 -[phone] Encounter Details Date Type Department Care Team (Latest Contact Info) Description 01/20/2003 Outpatient Historical [facility] Family Medicine [address] [address] Bernice Heller MD NO ADDRESS ON FILE DYSMENORRHEA (Primary Dx) Social History Tobacco Use Types Packs/Day Years Used Date Smoking Tobacco: Never Assessed Comments Unknown Sex and Gender Information Value Date Recorded Sex Assigned at Not on file Legal Sex Female 5:07 AM COMMUNICATIONS MANAGER Gender Identity Not on file Sexual Orientation Not on file documented as of this encounter Plan of Treatment Not on file documented as of this encounter Visit Diagnoses Diagnosis Dysmenorrhea- Primary documented in this encounter Care Teams Smash Hand Relationship Specialty Start Date End Date Regan Valles MD [address] [address] PCP - General Family Practice 07/03/20 documented as of this encounter
--- OUTSIDE RECORDS SUMMARY | 2025-04-19 14:29 | XMS_ITS | Encounter Summary ---
Author Organization [facility] Address [address] [place] [address] Care Team Providers Care Environmental Intern Name Role Phone Regan Valles MD Primary Care Provider +1 -[phone] Encounter Details Date Type Department Care Team (Latest Contact Info) Description 07/10/[address] [facility] Family Medicine [address] [address] Fer Bearden DO NO ADDRESS ON FILE CERVICITIS (Primary Dx) Social History Tobacco Use Types Packs/Day Years Used Date Smoking Tobacco: Never Assessed Comments Unknown Sex and Gender Information Value Date Recorded Sex Assigned at Not on file Legal Sex Female 5:07 AM HAM STRINGER Gender Identity Not on file Sexual Orientation Not on file documented as of this encounter Plan of Treatment Not on file documented as of this encounter Visit Diagnoses Diagnosis Cervicitis and endocervicitis- Primary documented in this encounter Care Teams Environmental Intern Relationship Specialty Start Date End Date Regan Valles MD [address] [address] PCP - General Family Practice 07/03/20 documented as of this encounter
--- OUTSIDE RECORDS SUMMARY | 2025-04-19 14:29 | XMS_ITS | Clinical Summary ---
Author Organization [facility] [facility] Address [address] [place] [address] Phone Care Team Providers Care Ordnance Keeper Name Role Phone Regan Valles MD Primary Care Provider +1 -[phone] Allergies No known active allergies Medications paliperidone (INVEGA) 6 mg Extended Release 24 hour tablet Take 6 mg by mouth daily in the morning. Active Active Problems Problem Noted Date Diagnosed Date Sprain of left thumb 08/29/2020 Hyperprolactinemia 07/03/2020 Dysmenorrhea 07/03/2020 Cigarette dependence 08/15/2015 Resolved Problems Problem Noted Date Diagnosed Date Resolved Date Neutropenic fever 05/08/2019 07/03/2020 Neutropenia 05/07/2019 07/03/2020 Immunizations Immunization Administration Dates Next Due (ADACEL/BOOSTRIX)(10 YR UP) TDAP VACCINE, 0.5ML, IM 04/20/2012 (M-M-R II/PRIORIX)(12 MO UP) MEASLES, MUMPS AND RUBELLA VIRUS VACCINE, 0.5 ML IM/SUBCUT 05/24/1992,11/06/1989 (TDVAX)(7 YRS UP) TETANUS AN D DIPHTHERIA TOXOIDS, ADSORBED (2 LF OF TETANUS TOXOID AND 2 LF OF DIPHTHERIA TOXOID), 0.5ML (PF), IM 06/23/2003,06/21/2002 Dt Dtp Dtap Vaccine 05/24/1992,02/26/1991,1989 HIB, Unspecified Formulation 03/29/1991 Hepatitis B Vaccine 06/23/2003, 1,09/16/2000,1999 IPV/OPV 11/18/1991,03/01/1991 Social History Tobacco Use Types Packs/Day Years Used Date Smoking Tobacco: Every Day Cigarettes 0.3 5 Smokeless Tobacco: Never Tobacco Cessation:Ready to Q uit: No; Counseling Given: Yes Alcohol Use Standard Drinks/Week Comments No 0 (1 standard drink = 0.6 oz pur e alcohol) Feeling Safe Answer Date Recorded Within the last year, have y ou been afraid of your partner or ex-partner? Patient declined 12/23/2018 Within the last year, have y ou been humiliated or emotionally abused in other ways by your partner or ex-partner? Patient declined 12/23/2018 Within the last year, have y ou been kicked, hit, slapped, or otherwise physically hurt by your partner or ex-partner? Patient declined 12/23/2018 Within the last year, have y ou been raped or forced to have any kind of sexual activity by your partner or ex-partner? Patient declined 12/23/2018 Social Connections Answer Date Recorded In a typical week, how many times do you talk on the phone with family, friends, or neighbors? Patient declined 12/23/2018 How often do you get togethe r with friends or relatives? Patient declined 12/23/2018 How often do you attend spiritism or baptism serv ices? Patient declined 12/23/2018 Do you belong to any clubs o r organizations such as spiritism groups, unions, fraternal or athletic groups, or school groups? Patient declined 12/23/2018 How often do you attend meet ings of the clubs or organizations you belong to? Patient declined 12/23/2018 Are you , , di vorced, , never , or living with a partner? Patient declined 12/23/2018 Financial Resource Strain Answer Date R ecorded How hard is it for you to pa y for the very basics like food, housing, medical care, and heating? Patient declined 12/23/2018 Food Insecurity Answer Date Recorded Within the past 12 months, y ou worried that your food would run out before you got the money to buy more. Patient declined Within the past 12 months, t he food you bought just didn't last and you didn't have money to get more. Patient declined 03/2019 Transportation Needs Answer Date Record ed In the past 12 months, has l ack of transportation kept you from medical appointments or from getting medications? Patient declined 12/23/2018 In the past 12 months, has l ack of transportation kept you from meetings, work, or from getting things needed for daily living? Patient declined 12/23/2018 Comments No Sex and Gender Information Value Date Recorded Sex Assigned at Not on file Legal Sex Female 5:07 AM ARMORED MACHINE OPERATOR Gender Identity Not on file Sexual Orientation Not on file Occupation Industry Job Start Date Job End Date Not on file Not on file Not on file Not on file Not on file Not on file Not on file Not on file Not on file Not on file Not on file Not on file Last Filed Vital Signs Vital Sign Reading Time Taken Comments Blood Pressure 114/71 12/25/2020 7:49 PM CDT Pulse 106 07/03/2020 3:06 PM ARMORED MACHINE OPERATOR Temperature 36.5 C (97.7 F) 12/25/2020 6:45 PM CDT Respiratory Rate 18 12/25/2020 7:49 PM CDT Oxygen Saturation 99% 12/25/2020 7:49 PM CDT Inhaled Oxygen Concentration - - Weight 53 kg (116 lb 12.8 oz) 12/25/2020 6:45 PM CDT Height 154.9 cm (5' 1 ) 12/25/2020 6:45 PM CDT Body Mass Index 22.07 12/25/2020 6:45 PM CDT Plan of Treatment Health Maintenance Due Date Last Done Comments HPV VACCINES (1 - 3-dose SCD M series) 2013 DTAP/TDAP/TD VACCINES (6 - T d or Tdap) 04/20/2022 04/20/2012, 06/23/2003, 06/21/2002, Additional history exists PAP SMEAR 10/15/2022 10/15/2019 [place] ([place] Preventative Visit/Annual Wellness Visit 08/18/2024 10/15/2019 CERVICAL CANCER SCREENING 10/15/2024 HPV/Cotest (21-29) 10/15/2024 10/15/2019 HPV/Cotest (30-65) 10/15/2024 10/15/2019 INFLUENZA VACCINE (#1) 2025 05/18/2020, 2019 HEPATITIS B VACCINES Completed 06/23/2003, 02/04/2001, 09/16/2000, Additional history exists Procedures Procedure Name Priority Date/Time Associated Diagnosis Comments CERV/VAG CYTO SCREEN PAP RLFX HPV Routine 10/15/2019 2:35 PM ARMORED MACHINE OPERATOR Pap smear for cervical cancer screening from Last 3 Months or Most Recently Relevant to Health Maintenance Results * CERV/VAG CYTO SCREEN PAP RLFX HPV (10/15/2019 2:35 PM ARMORED MACHINE OPERATOR) CLINICAL INFORMATION Information not provided 10/21/2019 8:34 AM ARMORED MACHINE OPERATOR [facility] LAST MENSTRUAL PERIOD [id number]/21/2019 8:34 AM ARMORED MACHINE OPERATOR [facility] PREV PAP: INFORMATION NOT PROVIDED 10/21/2019 8:34 AM ARMORED MACHINE OPERATOR [facility] PREV BX: INFORMATION NOT PROVIDED 10/21/2019 8:34 AM ARMORED MACHINE OPERATOR [facility] SOURCE Endocervix 10/21/2019 8:34 AM ARMORED MACHINE OPERATOR [facility] ADEQUACY: SEE COMMENT 10/21/2019 8:34 AM ARMORED MACHINE OPERATOR [facility] Comment: Satisfactory for evaluation. Endocervical/transformation zone component present. PAP INTERP Negative for intraepithelial lesion or malignancy. 10/21/2019 8:34 AM ARMORED MACHINE OPERATOR [facility] CYTOLOGY INFECTION Shift in vaginal amara suggestive of bacterial vaginosis. 10/21/2019 8:34 AM ARMORED MACHINE OPERATOR [facility] COMMENT This Pap test has been evaluated with computer assisted technology. 10/21/2019 8:34 AM ARMORED MACHINE OPERATOR [facility] CARTON GLUING MACHINE OPERATOR: SEE COMMENT 2019 8:34 AM ARMORED MACHINE OPERATOR [facility] Comment: MXL, CT(ASCP) CT screening location: [place] [address] [place] [address] EXPLANATORY NOTE SEE COMMENT 020 8:34 AM ARMORED MACHINE OPERATOR [facility] Comment: EXPLANATORY NOTE: The Pap is a screening test for cervical cancer. It is not a diagnostic test and is subject to false negative and false positive results. It is most reliable when a satisfactory sample, regularly obtained, is submitted with relevant clinical findings and history, and when the Pap result is evaluated along with historic and current clinical information. Genital SWAB OF ENDOCERVIX / Unknown Collection / Unknown 10/15/2019 2:35 PM ARMORED MACHINE OPERATOR 10/18/2019 8:16 AM ARMORED MACHINE OPERATOR Narrative [facility] - 10/21/2019 8:34 AM ARMORED MACHINE OPERATOR Performing Organization Information: Site ID: [id number] Name: [facility] Address: [address] [place] [address] Director: Yvonne Rojo Stephenie Mclean PHP ARCHITECT PATHOLOGY/CYTOLOGY FRANCISCO ARREOLA Final Result [facility] [phone] from Last 3 Months or Most Recently Relevant to Health Maintenance Insurance MEDICAID [facility] Advance Directives For more information, please contact: [phone] * Full Code (Latest Code Status on File) Date Activated Date Inactivated Comments 05/07/2019 10:36 PM 05/09/2019 11:43 AM Care Teams Ordnance Keeper Relationship Specialty Start Date End Date Regan Valles MD [address] [facility] [address] [place] [phone] PCP - General Family Practice 07/03/20
--- OUTSIDE RECORDS SUMMARY | 2025-04-19 14:29 | XMS_ITS | Encounter Summary ---
Author Organization [facility] Address [address] [place] [address] Care Team Providers Care Fixture Fabricator Repairer Name Role Phone Regan Valles MD Primary Care Provider +1 [phone] Encounter Details Date Type Department Care Team (Late st Contact Info) Description 11/27/2007 Outpatient Historical [facility] [address] [place] [address] AMBULANCE, [facility] Social History Tobacco Use Types Packs/Day Years Used Date Smoking Tobacco: Never Assessed Comments Unknown Sex and Gender Information Value Date Recorded Sex Assigned at Not on file Legal Sex Female 5:07 AM CIRCULAR KNITTER Gender Identity Not on file Sexual Orientation Not on file documented as of this encounter Plan of Treatment Not on file documented as of this encounter Visit Diagnoses Not on filedocumented in this encounter Care Teams Fixture Fabricator Repairer Relationship Specialty Start Date End Date Regan Valles MD [address] [place] [phone] PCP - General Family Practice 07/03/20 documented as of this encounter
--- OUTSIDE RECORDS SUMMARY | 2025-04-19 14:29 | XMS_ITS | Encounter Summary ---
Author Organization [facility] Address [address] [place] [address] Care Team Providers Care Music Producer Name Role Phone Regan Valles MD Primary Care Provider +1 [phone] Encounter Details Date Type Department Care Team (Latest Contact Info) Description 07/10/2004 Outpatient Historical [facility] Family Medicine [place] [address] [address] Reggie Plata NP NO ADDRESS ON FILE ROUTINE ORTHOPEDICS NURSE EXAMINATION (Primary Dx); ACUTE SINUSITIS NOS; ACUTE PHARYNGITIS; Irregular menstruation Social History Tobacco Use Types Packs/Day Years Used Date Smoking Tobacco: Never Assessed Comments Unknown Sex and Gender Information Value Date Recorded Sex Assigned at Not on file Legal Sex Female 5:07 AM FOXING CLOSER Gender Identity Not on file Sexual Orientation Not on file documented as of this encounter Plan of Treatment Not on file documented as of this encounter Visit Diagnoses Diagnosis Routine gynecological examination- Primary Acute sinusitis, unspecified Acute pharyngitis Irregular menstruation Irregular menstrual cycle documented in this encounter Care Teams Music Producer Relationship Specialty Start Date End Date Regan Valles MD [address] [address] PCP - General Family Practice 07/03/20 documented as of this encounter
--- OUTSIDE RECORDS SUMMARY | 2025-04-19 14:29 | XMS_ITS | Encounter Summary ---
Author Organization [facility] Address [address] [place] [address] Care Team Providers Care Heavy Duty Mechanic Farm Equipment Name Role Phone Regan Valles MD Primary Care Provider +1 -[phone] Encounter Details Date Type Department Care Team (Latest Contact Info) Description 11/26/2004 Outpatient Historical [facility] [address] [place] [address] AMBULANCE, [facility] PAIN IN LIMB (Primary Dx) Social History Tobacco Use Types Packs/Day Years Used Date Smoking Tobacco: Never Assessed Comments Unknown Sex and Gender Information Value Date Recorded Sex Assigned at Not on file Legal Sex Female 5:07 AM COMMERCIAL LINES ACCOUNT EXECUTIVE Gender Identity Not on file Sexual Orientation Not on file documented as of this encounter Plan of Treatment Not on file documented as of this encounter Visit Diagnoses Diagnosis Pain in limb- Primary documented in this encounter Care Teams Heavy Duty Mechanic Farm Equipment Relationship Specialty Start Date End Date Regna Valles MD [address] [facility] [address] [place] [phone] PCP - General Family Practice 07/03/20 documented as of this encounter
--- OUTSIDE RECORDS SUMMARY | 2025-04-19 14:29 | XMS_ITS | Encounter Summary ---
Author Organization [facility] Address [address] [place] [address] Care Team Providers Care Finish Remover Name Role Phone Regan Valles MD Primary Care Provider +1 -[phone] Encounter Details Date Type Department Care Team (Late st Contact Info) Description 04/23/2006 Outpatient Historical [facility] Orthopedics- [address] [place] [address] Jt Zelaya MD [address] [place] [address] Unspecified Part of Closed Fracture of Clavicle (Primary Dx) Social History Tobacco Use Types Packs/Day Years Used Date Smoking Tobacco: Never Assessed Comments Unknown Sex and Gender Information Value Date Recorded Sex Assigned at Not on file Legal Sex Female 5:07 AM ADMINISTRATIVE PROGRAM SPECIALIST Gender Identity Not on file Sexual Orientation Not on file documented as of this encounter Plan of Treatment Not on file documented as of this encounter Visit Diagnoses Diagnosis Unspecified part of closed fracture of clavicle- Primary documented in this encounter Care Teams Finish Remover Relationship Specialty Start Date End Date Regan Valles MD [address] [phone] PCP - General Family Practice 07/03/20 documented as of this encounter
--- OUTSIDE RECORDS SUMMARY | 2025-04-19 14:29 | XMS_ITS | Encounter Summary ---
Author Organization [facility] Address [address] [place] [address] Care Team Providers Care Terminal Computer Operator Name Role Phone Regan Valles MD Primary Care Provider +1 -[phone] Encounter Details Date Type Department Care Team (Latest Contact Info) Description 04/03/2006 Outpatient Historical [facility] Family Medicine [place] [address] [address] Reggie Plata NP NO ADDRESS ON FILE Abdominal Pain, Unspecified Site (Primary Dx); Absence of Menstruation Social History Tobacco Use Types Packs/Day Years Used Date Smoking Tobacco: Never Assessed Comments Unknown Sex and Gender Information Value Date Recorded Sex Assigned at Not on file Legal Sex Female 5:07 AM REFINERY OPERATOR HELPER Gender Identity Not on file Sexual Orientation Not on file documented as of this encounter Plan of Treatment Not on file documented as of this encounter Visit Diagnoses Diagnosis Abdominal pain, unspecified site- Primary Absence of menstruation documented in this encounter Care Teams Terminal Computer Operator Relationship Specialty Start Date End Date Regan Valles MD [address] [address] PCP - General Family Practice 07/03/20 documented as of this encounter
--- OUTSIDE RECORDS SUMMARY | 2025-04-19 14:29 | XMS_ITS | Encounter Summary ---
Author Organization [facility] Address [address] [place] [address] Care Team Providers Care Chrome Cleaner Name Role Phone Regan Valles MD Primary Care Provider +1 -[phone] Encounter Details Date Type Department Care Team (Latest Contact Info) Description 06/22/2005 Outpatient Historical [facility] Ambulance [address] [place] [address] AMBULANCE, [facility] PREG COMPL NOS-ANTEPART (Primary Dx) Social History Tobacco Use Types Packs/Day Years Used Date Smoking Tobacco: Never Assessed Comments Unknown Sex and Gender Information Value Date Recorded Sex Assigned at Not on file Legal Sex Female 5:07 AM SWABBER Gender Identity Not on file Sexual Orientation Not on file documented as of this encounter Plan of Treatment Not on file documented as of this encounter Visit Diagnoses Diagnosis Unspecified complication of , antepartum- Primary documented in this encounter Care Teams Chrome Cleaner Relationship Specialty Start Date End Date Regan Valles MD [address] [facility] [address] [place] [phone] PCP - General Family Practice 07/03/20 documented as of this encounter
--- OUTSIDE RECORDS SUMMARY | 2025-04-19 14:29 | XMS_ITS | Encounter Summary ---
Author Organization [facility] Address [address] [place] [address] Care Team Providers Care Junior Bookkeeper Name Role Phone Regan Valles MD Primary Care Provider +1 -[phone] Encounter Details Date Type Department Care Team (Latest Contact Info) Description 06/04/2005 Outpatient Historical [facility] Osbaldo Estrada DO [address] [place] [address] ANTEPARTUM HEMORR NOS-ANTEPAR (Primary Dx) Social History Tobacco Use Types Packs/Day Years Used Date Smoking Tobacco: Never Assessed Comments Unknown Sex and Gender Information Value Date Recorded Sex Assigned at Not on file Legal Sex Female 5:07 AM SPOT WASHER Gender Identity Not on file Sexual Orientation Not on file documented as of this encounter Plan of Treatment Not on file documented as of this encounter Visit Diagnoses Diagnosis Unspecified antepartum hemorrhage, antepartum- Primary documented in this encounter Care Teams Junior Bookkeeper Relationship Specialty Start Date End Date Regan Valles MD [address] [facility] [address] [place] [address] PCP - General Family Practice 07/03/20 documented as of this encounter
--- OUTSIDE RECORDS SUMMARY | 2025-04-19 14:29 | XMS_ITS | Encounter Summary ---
Author Organization [facility] Address [address] [place] [address] Care Team Providers Care Supervisor Airplane Flight Attendant Name Role Phone Regan Valles MD Primary Care Provider +1 -[phone] Encounter Details Date Type Department Care Team (Latest Contact Info) Description 03/15/2006 Outpatient Historical [facility] [address] [place] [address] AMBULANCE, [facility] Open Wnd of Head NEC (Primary Dx) Social History Tobacco Use Types Packs/Day Years Used Date Smoking Tobacco: Never Assessed Comments Unknown Sex and Gender Information Value Date Recorded Sex Assigned at Not on file Legal Sex Female 5:07 AM CARGO BRACER Gender Identity Not on file Sexual Orientation Not on file documented as of this encounter Plan of Treatment Not on file documented as of this encounter Visit Diagnoses Diagnosis Other and unspecified open wound of head without mention of complication- Primary documented in this encounter Care Teams Supervisor Airplane Flight Attendant Relationship Specialty Start Date End Date Regan Valles MD [address] [facility] [address] [place] [address] PCP - General Family Practice 07/03/20 documented as of this encounter
--- OUTSIDE RECORDS SUMMARY | 2025-04-19 14:29 | XMS_ITS | Encounter Summary ---
Author Organization [facility] Address [address] [place] [address] Care Team Providers Care Cotton Opener Name Role Phone Regan Valles MD Primary Care Provider +1 -[phone] Encounter Details Date Type Department Care Team (Latest Contact Info) Description 03/26/2004 Outpatient Historical [facility] Family Medicine- [place] [address] [place] [address] Reggie Plata NP NO ADDRESS ON FILE MED EXAM NEC-ADMIN PURP (Primary Dx); CHRONIC SINUSITIS NOS Social History Tobacco Use Types Packs/Day Years Used Date Smoking Tobacco: Never Assessed Comments Unknown Sex and Gender Information Value Date Recorded Sex Assigned at Not on file Legal Sex Female 5:07 AM [employer]CHO[employer] PE TEACHER Gender Identity Not on file Sexual Orientation Not on file documented as of this encounter Plan of Treatment Not on file documented as of this encounter Visit Diagnoses Diagnosis Other general medical examination for administrative purposes- Primary Unspecified sinusitis (chronic) documented in this encounter Care Teams Cotton Opener Relationship Specialty Start Date End Date Regan Valles MD [address] [facility] [address] [place] [phone] PCP - General Family Practice 07/03/20 documented as of this encounter
--- OUTSIDE RECORDS SUMMARY | 2025-04-19 14:29 | XMS_ITS | Encounter Summary ---
Author Organization [facility] Address [address] [place] [address] Care Team Providers Care Prepress Technician Name Role Phone Regan Valles MD Primary Care Provider +1 -[phone] Encounter Details Date Type Department Care Team (Latest Contact Info) Description 10/17/2006 Outpatient Historical [facility] Ambulance [address] [place] [address] AMBULANCE, [facility] Open Wound of Wrist, without Mention of Complication (Primary Dx) Social History Tobacco Use Types Packs/Day Years Used Date Smoking Tobacco: Never Assessed Comments Unknown Sex and Gender Information Value Date Recorded Sex Assigned at Not on file Legal Sex Female 5:07 AM VACUUM FRAME OPERATOR Gender Identity Not on file Sexual Orientation Not on file documented as of this encounter Plan of Treatment Not on file documented as of this encounter Visit Diagnoses Diagnosis Open wound of wrist, without mention of complication- Primary documented in this encounter Care Teams Prepress Technician Relationship Specialty Start Date End Date Regan Valles MD [address] [facility] [address] [place] [address] PCP - General Family Practice 07/03/20 documented as of this encounter
--- OUTSIDE RECORDS SUMMARY | 2025-04-19 14:29 | XMS_ITS | Encounter Summary ---
Author Organization [facility] Address [address] [place] [address] Care Team Providers Care Oven Baker Name Role Phone Regan Valles MD Primary Care Provider +1 -[phone] Encounter Details Date Type Department Care Team (Latest Contact Info) Description 11/15/1999 Outpatient Historical [facility] Raymundo Plata Jr., MD [address] [place] [address] Conjunctivitis unspecified (Primary Dx) Social History Tobacco Use Types Packs/Day Years Used Date Smoking Tobacco: Never Assessed Comments Unknown Sex and Gender Information Value Date Recorded Sex Assigned at Not on file Legal Sex Female 5:07 AM EVAPORATOR REPAIRER Gender Identity Not on file Sexual Orientation Not on file documented as of this encounter Plan of Treatment Not on file documented as of this encounter Visit Diagnoses Diagnosis Conjunctivitis unspecified- Primary Conjunctivitis, unspecified documented in this encounter Care Teams Oven Baker Relationship Specialty Start Date End Date Regan Valles MD [address] [phone] PCP - General Family Practice 07/03/20 documented as of this encounter
--- OUTSIDE RECORDS SUMMARY | 2025-04-19 14:29 | XMS_ITS | Clinical Summary ---
Author Organization [facility] unty Address [address] [place] [address] Phone Care Team Providers Care Supervisor Green End Department Name Role Phone Regan Valles MD Primary Care Provider +1 [phone] Allergies No known active allergies Medications amoxicillin (AMOXIL) 500 mg TabletIndicatio ns:Right acute otitis media Take 1 Tablet (500 mg) by mouth every 12 hours for 7 days. 14 Tablet 03/15/2025 Active Problems Problem Noted Date Diagnosed Date Closed displaced fracture of proximal phalanx of lesser toe of left foot 04/28/2022 Sprain of left thumb 08/29/2020 Hyperprolactinemia 07/03/2020 Dysmenorrhea 07/03/2020 Cigarette dependence 08/15/2015 Resolved Problems Problem Noted Date Diagnosed Date Resolved Date Neutropenic fever 05/08/2019 07/03/2020 Neutropenia 05/07/2019 07/03/2020 Encounters Date Type Department Care Team Description 04/05/2025 External Device Data STL ABSTRACTION Provider, Abstract 03/29/2025 External Device Data STL ABSTRACTION Provider, Abstract 03/29/2025 External Device Data STL ABSTRACTION Provider, Abstract 03/15/2025 1:00 PM CDT Office Visit [address] [phone] Dorita Corey FNP Right acute otitis media (Primary Dx) 03/08/2025 Patient Outreach [address] [address] Non-Staff, Physician Primary Care Outreach 03/02/2025 External Device Data STL ABSTRACTION Provider, Abstract 03/02/2025 External Device Data STL ABSTRACTION Provider, Abstract 02/15/2025 External Device Data STL ABSTRACTION Provider, Abstract 01/18/2025 External Device Data STL ABSTRACTION Provider, Abstract from Last 3 Months Immunizations Immunization Administration Dates Next Due (ADACEL/BOOSTRIX)(10 YR UP) TDAP VACCINE, 0.5ML, IM 02/21/2021,04/20/2012 (HYPERRAB/IMOGAM-HT)(ALL AGE S) RABIES IMMUNE GLOBULIN, HUMAN (RIg) 300 UNIT/ML (PF)/(RIg-HT), 150 UNIT/ML, IM/SUBCUT 11/20/2023 (IMOVAX)(ALL AGES) RABIES VA CCINE, DIPLOID, 1 ML, IM 12/04/2023,11/27/2023,11/23/2023,2023 (M-M-R II/PRIORIX)(12 MO UP) MEASLES, MUMPS AND RUBELLA VIRUS VACCINE, 0.5 ML IM/SUBCUT 05/24/1992,11/06/1989 (TDVAX)(7 YRS UP) TETANUS AN D DIPHTHERIA TOXOIDS, ADSORBED (2 LF OF TETANUS TOXOID AND 2 LF OF DIPHTHERIA TOXOID), 0.5ML (PF), IM 06/23/2003,06/21/2002 Dt Dtp Dtap Vaccine 05/24/1992,02/26/1991,1989 HIB, Unspecified Formulation 03/29/1991 Hepatitis B Vaccine 06/23/2003, 1,09/16/2000,1999 Hepatitis B Vaccine, Adolesc ent/High Risk Dosage 02/04/2001,09/16/2000 Hepatitis B Vaccine, Unspeci fied Formulation 06/23/2003,01/31/2000 IPV/OPV 11/18/1991,03/01/1991 Social History Tobacco Use Types Packs/Day Years Used Date Smoking Tobacco: Former Cigarettes Smokeless Tobacco: Never Tobacco Cessation:Counseling Given: Not Answered Alcohol Use Standard Drinks/Week Comments No 0 (1 standard drink = 0.6 oz pur e alcohol) Feeling Safe Answer Date Recorded Are you in a relationship wi th someone who hurts you emotionally and/or physically? No 07/17/2024 Comments No Sex and Gender Information Value Date Recorded Sex Assigned at Not on file Legal Sex Female 5:47 AM HUMANE OFFICER Gender Identity Not on file Sexual Orientation Not on file Last Filed Vital Signs Vital Sign Reading Time Taken Comments Blood Pressure 98/74 03/15/2025 12:33 PM CDT Pulse 71 03/15/2025 12:33 PM CDT Temperature 36.6 C (97.8 F) 03/15/2025 12:33 PM CDT Respiratory Rate 18 03/15/2025 12:33 PM CDT Oxygen Saturation 100% 03/15/2025 12:33 PM CDT Inhaled Oxygen Concentration - - Weight 45 kg (99 lb 3.2 oz) 03/15/2025 12:33 PM CDT Height 154.9 cm (5' 1 ) 03/15/2025 12:33 PM CDT Body Mass Index 18.74 03/15/2025 12:33 PM CDT Plan of Treatment Upcoming Encounters Date Type Department Care Team (Late st Contact Info) Description 06/27/2025 3:00 PM HUMANE OFFICER Office Visit [facility] Medicine [address] [address] Regan Valles MD [address] [phone] Health Maintenance Due Date Last Done Comments HPV VACCINES (1 - 3-dose SCD M series) 2013 PAP SMEAR 10/15/2022 10/15/2019, 10/15/2019 [place] Preventative Visit/Annual Wellness Visit 08/18/2024 CERVICAL CANCER SCREENING 10/15/2024 HPV/Cotest (21-29) 10/15/2024 10/15/2019 HPV/Cotest (30-65) 10/15/2024 10/15/2019 INFLUENZA VACCINE (#1) 2025 05/18/2020, 2019 DTAP/TDAP/TD VACCINES (7 - T d or Tdap) 02/21/2031 02/21/2021, 04/20/2012, 06/23/2003, Additional history exists HEPATITIS B VACCINES Completed 06/23/2003, 06/23/2003, 02/04/2001, Additional history exists Procedures Procedure Name Priority Date/Time Associated Diagnosis Comments CERV/VAG CYTO SCREEN PAP RLFX HPV Routine 10/15/2019 2:35 PM HUMANE OFFICER from Last 3 Months or Most Recently Relevant to Health Maintenance Results * CERV/VAG CYTO SCREEN PAP RLFX HPV (10/15/2019 2:35 PM HUMANE OFFICER) CLINICAL INFORMATION Information not provided 10/21/2019 8:34 AM HUMANE OFFICER [facility] LAST MENSTRUAL PERIOD [id number]/21/2019 8:34 AM HUMANE OFFICER [facility] PREV PAP: INFORMATION NOT PROVIDED 10/21/2019 8:34 AM HUMANE OFFICER [facility] PREV BX: INFORMATION NOT PROVIDED 10/21/2019 8:34 AM HUMANE OFFICER [facility] SOURCE Endocervix 10/21/2019 8:34 AM HUMANE OFFICER [facility] ADEQUACY: SEE COMMENT 10/21/2019 8:34 AM HUMANE OFFICER [facility] Comment: Satisfactory for evaluation. Endocervical/transformation zone component present. PAP INTERP Negative for intraepithelial lesion or malignancy. 10/21/2019 8:34 AM HUMANE OFFICER [facility] CYTOLOGY INFECTION Shift in vaginal amara suggestive of bacterial vaginosis. 10/21/2019 8:34 AM HUMANE OFFICER [facility] COMMENT This Pap test has been evaluated with computer assisted technology. 10/21/2019 8:34 AM HUMANE OFFICER [facility] SURVEYOR: SEE COMMENT 2019 8:34 AM HUMANE OFFICER [facility] Comment: MXL, CT(ASCP) CT screening location: [place] [address] [place], [place] [address] EXPLANATORY NOTE SEE COMMENT 020 8:34 AM HUMANE OFFICER [facility] Comment: EXPLANATORY NOTE: The Pap is a [...] Unknown Collection / Unknown 10/15/2019 2:35 PM HUMANE OFFICER 10/19/2019 10:17 AM HUMANE OFFICER Narrative [facility] - 10/21/2019 8:34 AM HUMANE OFFICER Performing Organization Information: Site ID: SL Name: [facility] Address: [address] [place] [address] Director: Yvonne Rojo Stephenie Mclean NP PATHOLOGY/CYTOLOGY FRANCISCO ARREOLA Final Result [facility] [phone] [facility] from Last 3 Months or Most Recently Relevant to Health Maintenance Insurance MEDICAID [place] [facility] MEDICAID [place] Care Teams Supervisor Green End Department Relationship Specialty Start Date End Date Regan Valles MD [address] [address] PCP - General Family Practice 03/15/25
--- OUTSIDE RECORDS SUMMARY | 2025-04-19 14:29 | XMS_ITS | Encounter Summary ---
Author Organization [facility] Address [address] [place] [address] Care Team Providers Care Director Of Environmental Services Name Role Phone Regan Valles MD Primary Care Provider [phone] [phone] Encounter Details Date Type Department Care Team (Late st Contact Info) Description 01/30/2016 Ancillary Orders [facility] Admitting [address] [place] [address] Fer Bearden, NO ADDRESS ON FILE Fracture of right clavicle (Primary Dx); Pain Social History Tobacco Use Types Packs/Day Years Used Date Smoking Tobacco: Every Day Cigarettes Smokeless Tobacco: Never Alcohol Use Standard Drinks/Week Comments No 0 (1 standard drink = 0.6 oz pur e alcohol) Comments No Sex and Gender Information Value Date Recorded Sex Assigned at Not on file Legal Sex Female 5:07 AM 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 [id number] Narrative 01/30/2016 12:49 PM CDT Exam: XR CLAVICLE RIGHT Date/Time of Exam: 01/30/2016 10:55 AM Reason For Exam: Fracture of right clavicle, Pain. Findings: Evaluation of the right clavicle demonstrates an old fracture of the mid aspect of the right clavicle with associated nonunion. There is diastasis between the fracture fragments of at least 1 cm. Proximal and distal joint space appears to be intact. Right shoulder is normal. us Fer Bearden DO DIAGNOSTIC IMAGING ORDERABLES F inal Result documented in this encounter Visit Diagnoses Diagnosis Fracture of right clavicle- Primary Unspecified part of closed fracture of clavicle Pain Generalized pain Fracture of right clavicle Unspecified part of closed fracture of clavicle Pain Generalized pain documented in this encounter Care Teams Director Of Environmental Services Relationship Specialty Start Date End Date Regan Valles MD [address] [phone] PCP - General Family Practice 07/03/20 documented as of this encounter
--- OUTSIDE RECORDS SUMMARY | 2025-04-19 14:29 | XMS_ITS | Encounter Summary ---
Author Organization [facility] Address [address] [place] [address] Care Team Providers Care Technical Assistant Name Role Phone Regan Valles MD Primary Care Provider [phone] [phone] Encounter Details Date Type Department Care Team (Latest Contact Info) Description 04/21/2003 Outpatient Historical [facility] Medicine [place] [address] [phone] Bernice Heller MD NO ADDRESS ON FILE SPRAIN OF KNEE & LEG NOS (Primary Dx); CONTRACEPTIVE MANGMT NOS Social History Tobacco Use Types Packs/Day Years Used Date Smoking Tobacco: Never Assessed Comments Unknown Sex and Gender Information Value Date Recorded Sex Assigned at Not on file Legal Sex Female 5:07 AM EXTENSION COURSE COORDINATOR Gender Identity Not on file Sexual Orientation Not on file documented as of this encounter Plan of Treatment Not on file documented as of this encounter Visit Diagnoses Diagnosis Sprain and strain of unspecified site of knee and leg- Primary Unspecified contraceptive management documented in this encounter Care Teams Technical Assistant Relationship Specialty Start Date End Date Regan Valles MD [address] [phone] PCP - General Family Practice 07/03/20 documented as of this encounter
--- OUTSIDE RECORDS SUMMARY | 2025-04-19 14:29 | XMS_ITS | Encounter Summary ---
Author Organization [facility] Address [address] [place] [address] Care Team Providers Care Preform Plate Maker Name Role Phone Regan Valles MD Primary Care Provider [phone] [phone] Encounter Details Date Type Department Care Team (Latest Contact Info) Description 05/18/2003 Outpatient Historical [facility] Family Medicine [place] [address] [address] Bernice Heller MD NO ADDRESS ON FILE CONTRACEPT SURVEILL NEC (Primary Dx); ABDOMINAL PAIN LLQ; BRIEF DEPRESSIVE REACT Social History Tobacco Use Types Packs/Day Years Used Date Smoking Tobacco: Never Assessed Comments Unknown Sex and Gender Information Value Date Recorded Sex Assigned at Not on file Legal Sex Female 5:07 AM CHILD CARE TEAM LEAD Gender Identity Not on file Sexual Orientation Not on file documented as of this encounter Plan of Treatment Not on file documented as of this encounter Visit Diagnoses Diagnosis Surveillance of other previously prescribed contraceptive method- Primary Abdominal pain, left lower quadrant Adjustment disorder with depressed mood documented in this encounter Care Teams Preform Plate Maker Relationship Specialty Start Date End Date Regan Valles MD [address] [phone] PCP - General Family Practice 07/03/20 documented as of this encounter
--- OUTSIDE RECORDS SUMMARY | 2025-04-19 14:29 | XMS_ITS | Encounter Summary ---
Author Organization [facility] Address [address] [place] [address] Care Team Providers Care Director Of Medical Services Name Role Phone Regan Valles MD Primary Care Provider [phone] [phone] Encounter Details Date Type Department Care Team (Late st Contact Info) Description 02/28/2008 Outpatient Historical [facility] [address] [place] [address] AMBULANCE, [facility] Social History Tobacco Use Types Packs/Day Years Used Date Smoking Tobacco: Never Assessed Comments Unknown Sex and Gender Information Value Date Recorded Sex Assigned at Not on file Legal Sex Female 5:07 AM SHOWER SCREEN INSTALLER Gender Identity Not on file Sexual Orientation Not on file documented as of this encounter Plan of Treatment Not on file documented as of this encounter Visit Diagnoses Not on filedocumented in this encounter Care Teams Director Of Medical Services Relationship Specialty Start Date End Date Regan Valles MD [address] [place] [address] PCP - General Family Practice 07/03/20 documented as of this encounter
--- OUTSIDE RECORDS SUMMARY | 2025-04-19 14:29 | XMS_ITS | Encounter Summary ---
Author Organization [facility] Address [address] [place] [address] Care Team Providers Care Replenishment Associate Name Role Phone Regan Valles MD Primary Care Provider [phone] [phone] Encounter Details Date Type Department Care Team (Latest Contact Info) Description 03/15/2006 Outpatient Historical [facility] [address] 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
--- OUTSIDE RECORDS SUMMARY | 2025-04-19 14:29 | XMS_ITS | Encounter Summary ---
Author Organization [facility] Address [address] [place] [address] Care Team Providers Care Electrostatic Painter Name Role Phone Regan Valles MD Primary Care Provider +1 [phone] Encounter Details Date Type Department Care Team (Latest Contact Info) Description 01/31/2000 Outpatient Historical [facility] Raymundo Plata Jr., MD [address] [place] [address] Vaccine for viral hepatitis (Primary Dx); Pityriasis versicolor; Chronic rhinitis Social History Tobacco Use Types Packs/Day Years Used Date Smoking Tobacco: Never Assessed Comments Unknown Sex and Gender Information Value Date Recorded Sex Assigned at Not on file Legal Sex Female 5:07 AM 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
--- OUTSIDE RECORDS SUMMARY | 2025-04-19 14:29 | XMS_ITS | Encounter Summary ---
Author Organization [facility] Address [address] [place] [address] Care Team Providers Care Manager Hardware Name Role Phone Regan Valles MD Primary Care Provider +1 [phone] Encounter Details Date Type Department Care Team (Latest Contact Info) Description 04/05/2005 Outpatient Historical [facility] Family Medicine [place] [address] [address] Reggie Plata NP NO ADDRESS ON FILE TEST, PREG UNCONFIRMED (Primary Dx) Social History Tobacco Use Types Packs/Day Years Used Date Smoking Tobacco: Never Assessed Comments Unknown Sex and Gender Information Value Date Recorded Sex Assigned at Not on file Legal Sex Female 5:07 AM DIE MAKER ELECTRONIC Gender Identity Not on file Sexual Orientation Not on file documented as of this encounter Plan of Treatment Not on file documented as of this encounter Visit Diagnoses Diagnosis examination or test, unconfirmed- Primary documented in this encounter Care Teams Manager Hardware Relationship Specialty Start Date End Date Regan Valles MD [address] [address] PCP - General Family Practice 07/03/20 documented as of this encounter
--- OUTSIDE RECORDS SUMMARY | 2025-04-19 14:29 | XMS_ITS | Encounter Summary ---
Author Organization [facility] Address [address] [place] [address] Care Team Providers Care Solidworks Designer Name Role Phone Regan Valles MD Primary Care Provider +1 [phone] Encounter Details Date Type Department Care Team (Latest Contact Info) Description 10/19/2004 Outpatient Historical [facility] Medicine [place] [address] [address] Reggie Plata NP NO ADDRESS ON FILE DEPRESSIVE DISORDER NEC (Primary Dx) Social History Tobacco Use Types Packs/Day Years Used Date Smoking Tobacco: Never Assessed Comments Unknown Sex and Gender Information Value Date Recorded Sex Assigned at Not on file Legal Sex Female 5:07 AM WAGE CONCILIATOR Gender Identity Not on file Sexual Orientation Not on file documented as of this encounter Plan of Treatment Not on file documented as of this encounter Visit Diagnoses Diagnosis Depressive disorder, not elsewhere classified- Primary documented in this encounter Care Teams Solidworks Designer Relationship Specialty Start Date End Date Regan Valles MD [address] [address] PCP - General Family Practice 07/03/20 documented as of this encounter
--- OUTSIDE RECORDS SUMMARY | 2025-04-19 14:29 | XMS_ITS | Encounter Summary ---
Author Organization [facility] Address [address] [place] [address] Care Team Providers Care Technical System Analyst Name Role Phone Regan Valles MD Primary Care Provider + [phone] Encounter Details Date Type Department Care Team (Late st Contact Info) Description 03/25/2006 Outpatient Historical [facility] 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
--- OUTSIDE RECORDS SUMMARY | 2025-04-19 14:29 | XMS_ITS | Encounter Summary ---
Author Organization [facility] Address [address] [place] [address] Care Team Providers Care Spa Concierge Name Role Phone Regan Valles MD Primary Care Provider [phone] [phone] Encounter Details Date Type Department Care Team (Late st Contact Info) Description 03/05/[address] [facility] [address] [place] [address] AMBULANCE, [facility] Social History Tobacco Use Types Packs/Day Years Used Date Smoking Tobacco: Never Assessed Comments Unknown Sex and Gender Information Value Date Recorded Sex Assigned at Not on file Legal Sex Female 5:07 AM FRUIT OR NUT FARMER Gender Identity Not on file Sexual Orientation Not on file documented as of this encounter Plan of Treatment Not on file documented as of this encounter Visit Diagnoses Not on filedocumented in this encounter Care Teams Spa Concierge Relationship Specialty Start Date End Date Regan Valles MD [address] [place] [phone] PCP - General Family Practice 07/03/20 documented as of this encounter
[2025-04-19 14:30] VITALS: BP 125/58; PULSE 79; TEMP 36.6; O2SAT 98; BMI 19.3
--- NOTE | 2025-04-19 14:49 | W.ED.WOUNDLC ---
HPI - Wound/Laceration General: Chief Complaint: Wound/Laceration Stated Complaint: left hand cut Time Seen by Provider: 04/19/25 14:29 Source: patient Mode of arrival: ambulatory Limitations: no limitations History of Present Illness: 39-year-old female states that she had lacerated her left pinky finger on a nail roughly 2 hours ago. Has roughly 1 cm laceration bleeding controlled she has minimal pain she is unsure when her last tetanus was. Denies any other injuries Associated symptoms: Denies chills, fever(s), nausea or vomiting Related Data Home Medications ?Medication ?Instructions ?Recorded ?Confirmed No Known Home Medications 12/08/24 12/08/24 Allergies Allergy/AdvReac Type Severity Reaction Status Date / Time No Known Allergies Allergy Verified 04/19/25 14:35 Review of Systems Const: Denies: fever(s), chills, body aches or change in appetite Eyes: Denies: eye discomfort ENMT: Denies: throat pain or dental pain Card: Denies: chest pain Resp: Denies: dyspnea GI: Denies: abdominal pain, nausea, vomiting or diarrhea Musc: Denies: neck pain or back pain Skin/Breast: Denies: rash Neuro: Denies: headache(s) PFSH ED PFSH: Medical History Psychiatric care Psychiatric care Bipolar disorder, current episode mixed, unspecified Post-traumatic stress disorder, chronic ADHD (attention deficit hyperactivity disorder) Surgical History S/P hysterectomy History of broken collarbone (01/29/18) 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 Performed by Dr. Burks at [facility] [place], [place]. History of bilateral tubal ligation (~2011) Family History Grandmother Uterine cancer maternal, age unknown Mother Thyroid disease Unknown No problems noted. Family/Other Thyroid disease maternal aunt Denies family history of Colon cancer Ovarian cancer Diabetes Clotting disorder Heart disease Hyperlipidemia Breast cancer Anesthesia complication Bleeding disorder Hypertension Stroke Social History Smoking and tobacco/nicotine status: never used tobacco/nicotine Physical Exam Const: COMMON NORMALS: no acute distress, patient oriented x3 and healthy appearing HENMT: COMMON NORMALS: normocephalic and atraumatic HEAD & SCALP: normocephalic and atraumatic Eye: COMMON NORMALS: conjunctivae normal CONJUNCTIVA: Yes conjunctivae normal Neck/C-Spine: COMMON NORMALS: full ROM and supple Chest: COMMONS NORMALS: normal inspection of the chest Resp: COMMON NORMALS: normal respiratory effort Cardio: COMMON NORMALS: regular rate RATE: regular rate Extremity: COMMON NORMALS: full ROM Neuro: COMMON NORMALS: patient oriented x3, moves all extremities and no focal motor deficits Psych: COMMON NORMALS: mental status grossly normal, Normal thought process present and cooperative THOUGHT PROCESS: Normal thought process present Skin: COMMON NORMALS: no rashes or lesions noted NARRATIVE SKIN EXAM: 2 cm laceration over the ulnar portion of the right pinky finger no tendon involvement bleeding controlled GENERAL SKIN EXAM: no rashes or lesions noted Procedures Laceration Laceration 1: Site: hand Side (If applicable): left Size (cm): 2 Description: linear Depth: simple, single layer Pre-repair: wound explored, irrigated extensively and deep structures intact Skin layer closed with: other (Dermabond) Course Vital Signs: Vital signs: Vital Signs Temperature 97.9 F 04/19/25 14:30 Pulse Rate 79 04/19/25 14:30 Blood Pressure 125/58 04/19/25 14:30 Pulse Oximetry 98 04/19/25 14:30 Oxygen Delivery Me thod Room Air 04/19/25 14:30 MDM - Wound/Laceration Medical Decision Making Patient presents today with laceration to her pinky finger did repair with Dermabond we will give her tetanus she stable for discharge No radiology studies performed this visit Discharge Plan Discharge Patient Disposition: Home Clinical Impression: Laceration Condition: Stable Prescriptions: No Action No Known Home Medications Discharge Orders: Discharge ED (Routine); Ordered 04/19/25 Ordered By: Erik Stanford Referrals: Heaven Alves FNP [Primary Care Provider, Family Practice] - 4-7 days Discharge Diet: Advance as tolerated Discharge Activity: Resume usual activity Patient Instructions: Laceration (ED), Skin Adhesive Care (ED) Print Language: Hebrew Coding Level of Care Code ED Electrical Engineering Technologist for Bunny Mario
[2025-04-19] MEDS: tetanus-dipt-pertussis 0.5 mL SDV IM (14:57)
[2025-04-19 15:13] VITALS: BP 111/75; PULSE 66; O2SAT 99
== END 2025-04-19 15:14 | disposition home or self-care (01) ==
PROVIDERS: Emergency Provider Emergency Medicine; PCP Registered Nurse
DX: S61.217A Laceration without foreign body of left little finger without damage to nail, initial encounter (principal); W45.0XXA Nail entering through skin, initial encounter
CPT/HCPCS: 12001; 29130; 90715; 99283